=== PATIENT | male | born 1945 | race Caucasian/White ===

== ENCOUNTER 2018-07-09 09:02 | Inpatient (IN) | payer OTHER ==
--- OUTSIDE RECORDS SUMMARY | 2018-07-09 09:04 | XMS REPORT | Clinical Summary ---
:1945 Author Organization [facility] Address [address] [place] [address] Care Team Providers Name Role Phone Vincent Villagomez MD Primary Care Provider Allergies No Known Allergies Medications Medication Sig Dispensed Refills Start Date End Date Status simvastatin (ZOCOR) 10 Take 10 mg by 0 Active MG tablet mouth nightly. terazosin (HYTRIN) 2 MG 0 03/25/2018 Active capsule aspirin (ECOTRIN) 81 MG Take 81 mg by 0 Active enteric coated tablet mouth. MULTIVITAMIN ORAL Take 1 tablet by 0 Active mouth. 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 Encounters Date Type Specialty Care Team Description 06/12/2018 Surgery Gastroenterology Main Maguire MD EGD W/ FNA, ESOPHAGEAL EUS 06/12/2018 Anesthesia Event Gastroenterology Chris Ovalle MD 06/12/2018 [facility] Gastroenterology Main Maguire MD Esophageal Encounter adenocarcinoma (HCC) (Primary Dx) 06/11/2018 Telephone Gastroenterology Sonja Rick MA 06/10/2018 Telephone Gastroenterology Sonja Rikc MA 06/09/2018 Telephone Cardiothoracic Surgery Beverly Barajas MA 06/09/2018 Telephone Gastroenterology Main Maguire MD 06/09/2018 Telephone Gastroenterology Main Maguire MD 06/04/2018 Hospital Radiology Maikel Edward Encounter MD [place] 06/04/2018 Hospital Radiology Maikel Edward Encounter MD [place] 06/04/2018 Office Visit Cardiothoracic Surgery Maikel Edward Esophageal MD [place] adenocarcinoma (HCC) (Primary Dx) 06/03/2018 Orders Only Cardiothoracic Surgery Provider, MD [place] after 07/08/2017 Family History Medical History Relation Name Comments Aplastic anemia Sister Relation Name Status Comments Sister Social History Tobacco Use Types Packs/Day Years Used Date Former Smoker Cigarettes 1 40 Quit: 06/04/2016 Smokeless Tobacco: Never Used Alcohol Use Drinks/Week oz/Week Comments No Sex Assigned at Date Recorded Not on file Job Start Date Occupation Industry Not on file Not on file Not on file Travel History Travel Start Travel End No recent travel history available. Last Filed Vital Signs Vital Sign Reading Time Taken Blood Pressure 154/71 06/12/2018 1:48 PM MANAGING SUPERVISOR Pulse 67 06/12/2018 1:48 PM MANAGING SUPERVISOR Temperature 36.3 C (97.3 F) 06/12/2018 1:20 PM MANAGING SUPERVISOR Respiratory Rate 22 06/12/2018 1:48 PM MANAGING SUPERVISOR Oxygen Saturation 96% 06/12/2018 1:48 PM MANAGING SUPERVISOR Inhaled Oxygen Concentration - - Weight 92.9 kg (204 lb 12.8 oz) 06/04/2018 11:30 AM CDT Height 177.8 cm (5' 10") 06/12/2018 11:37 AM MANAGING SUPERVISOR Body Mass Index 29.39 06/04/2018 11:30 AM CDT Plan of Treatment Health Maintenance Due Date Last Done Comments COLON CANCER SCREENING 1996 SHINGRIX VACCINE (1 of 2) 1996 ZOSTER VACCINE 2006 PNEUMOCOCCAL POLYSACCHARIDE VACCINE AGE 65 AND OVER 2011 PNEUMOCOCCAL-13 2011 INFLUENZA VACCINE 03/04/2018 Procedures Procedure Name Priority Date/Time Associated Comments Diagnosis ESOPHAGOGASTRODUODENOSCOPY (EGD) 06/12/2018 Esophageal 1:00 PM MANAGING SUPERVISOR cancer (HCC) CT CHEST EXTERNAL STUDY Routine 05/29/2018 Results for 3:51 PM CDT this procedure are in the results section. CT CHEST W CONTRAST ABDOMEN W Routine 05/29/2018 CONTRAST PELVIS W CONTRAST CT HEAD EXTERNAL STUDY Routine 05/25/2018 Results for 1:59 PM CDT this procedure are in the results section. after 07/08/[address] Chest External Study (05/29/2018 3:51 PM CDT) Narrative Performed At This exam was not acquired at a [facility] facility and has not been [facility] interpreted by a [facility] Provider.The exam was imported into our imaging system for comparisons purposes. Performing Organization Address City/State/[facility] Phone Number [facility] [address] [place] [address] CT Chest W Contrast Abdomen W Contrast Pelvis W Contrast (05/29/2018) Narrative Performed At CT Head External Study (05/25/2018 1:59 PM CDT) Narrative Performed At This exam was not acquired at a [facility] facility and has not been [facility] interpreted by a [facility] Provider.The exam was imported into our imaging system for comparisons purposes. Performing Organization Address [facility] Phone Number [facility] [address] [place] [address] after 07/08/2017 Insurance Payer Benefit Plan / Group Subscriber ID Type Phone Address A[employer]NA MEDICARE AETNA MEDICARE HMO/PPO [facility] xxxxxxxx HMO Advance Directives Patient has advance care planning documents on file. For more information, please contact:Minor Lopes[address] [place] [address]
[2018-07-09] MEDS ORDERED: Ringers Lactate 1,000 ML IV ONE (09:15)
[2018-07-09] MEDS ORDERED: CEFAZOLIN 1GM (PREMIX IV) 1 GM/50 ML BAG ONE (09:15)
[2018-07-09] MEDS ORDERED: FENTANYL CITR 100 MCG/2 ML ONE (10:55)
[2018-07-09] MEDS ORDERED: PROPOFOL 200 MG/20 ML VIAL IV ONE (10:55)
[2018-07-09] MEDS ORDERED: MIDAZOLAM HCL 2 MG/2 ML INJ ONE (10:56)
[2018-07-09] MEDS ORDERED: LIDOCAINE 2% MPF 5 ML VIAL ONE (10:56)
[2018-07-09] MEDS ORDERED: ROCURONIUM 50 MG/5 ML VIAL IV ONE (10:58)
[2018-07-09] MEDS ORDERED: ONDANSETRON 4 MG/2 ML VIAL ONE (10:58)
--- NOTE | 2018-07-09 12:19 | P.OP ---
Forensic Psychologist: Bandar Head Preoperative diagnosis: Esophageal Cancer Postoperative diagnosis: Esophageal Cancer Primary procedure: Placement of Jejunal Feeding Tube Anesthesia: GETA + Local Estimated blood loss: <5cc Specimen: None Findings: Large omentum, + adhesions Complications: None Implants: 18 Fr Jejunal Feeding Tube Transferred to: Recovery Room Condition: Good
[2018-07-09] MEDS ORDERED: GLYCOPYRROLATE 0.2 MG/ML SYR ONE (12:23)
[2018-07-09] MEDS ORDERED: NEOSTIGMINE 1 MG/ML -5 ML SYRINGE ONE (12:24)
[2018-07-09] MEDS: MEPERIDINE HCL 25 MG/0.5 ML ONE ×2 (12:35→12:40)
[2018-07-09] MEDS: MEPERIDINE HCL 50 MG/ML AMP ONE ×2 (12:49→12:55)
[2018-07-09] MEDS: HYDROMORPHONE HCL 1 MG/ML INJ IV PRN ×2 (13:56→20:20)
[2018-07-09] MEDS: NA CHLORIDE 0.9% 1,000 ML IV SCH (13:57)
[2018-07-09] MEDS: HYDROCODONE/APAP 7.5/325 MG TAB PO PRN ×2 (15:59→21:53)
[2018-07-09 16:36] VITALS: BMI 30.1
[2018-07-09 22:50] LABS: Urine Appearance CLEAR; Urine Bilirubin NEGATIVE (NEG); Urine Blood 2+ (NEG); Urine Color YELLOW; Urine Glucose 1+ (NEG); Urine Protein NEGATIVE (NEG); Urine pH 6.5 (5.0-7.0)
[2018-07-09 23:01] LABS: Urine Microscopic Reflex ORDER UMIC
--- NOTE | 2018-07-09 23:17 | OP ---
Date of Procedure: 07/09/2018 Surgeon: Antony Javier MD, Regulatory Internship: Adrian Cates. Preoperative Diagnosis: Esophageal cancer. Postoperative Diagnosis: Esophageal cancer. Procedure Performed: Placement of a jejunal feeding tube. Anesthesia: General endotracheal plus local. Estimated Blood Loss: Less than 5 cc. Specimen: None. Findings: Large omentum and some intra-abdominal adhesions. Complications: None. Implants: An 18-Sudanese jejunal feeding tube placed 20 cm distal to the ligament of Treitz. Disposition: Transferred to recovery room in good condition. Procedure In Detail: After informed consent was obtained, the patient was brought to the operating r oom, prepped and draped in the usual sterile fashion. After adequate anesthesia was achieved, an upp er midline incision was made through the midline skin down through subcutaneous tissues to dissect do wn to the layer of the fascia, which was opened with electrocautery. Dissection was continued down t o expose the peritoneum. He had significant preperitoneal fat. The peritoneum was grasped and enter ed sharply without evidence of complication. A large omentum was encountered immediately. After the incision was opened in its entirety, the omentum was swept out of the way. The small bowel was run from the ligament of Treitz to distally. A segment of jejunum approximately 20 cm from the ligament of Treitz was isolated and a suture was placed in a purse-string fashion to allow for placement of th e jejunal feeding tube. An area of the left upper quadrant was appropriately anesthetized, sharply i ncised, and an incision was made in the skin and a Crile was passed through the abdominal wall and th e jejunal feeding tube was passed after being appropriately lubricated. The balloon was tested and i t was passed through the abdominal wall and secured to the skin at this time. The balloon was once a gain tested and found to be intact. A small hole was then made in the jejunum and the 18-Sudanese jeju nal feeding tube was fed from proximal to distal and the balloon was inflated at this time. The purs estring was then secured to the jejunal feeding tube at this time and the additional silk retention s utures were placed on the abdominal wall circumferentially and the small bowel was secured to the ant erior abdominal wall using the 2-0 silk sutures with good approximation of the small bowel to the ant erior abdominal wall. The bowel was palpated and found to be widely patent. A 2 cc of saline was pl aced into the balloon and it was found to be in the distal position at this time. There was no leaka ge from enteric contents throughout the procedure and the abdomen was inspected once again. The omen mary was then returned to the normal anatomic position as was the small bowel. No obvious metastatic disease was appreciated, but this was not full exploration and as such, metastatic disease was not ob vious, but it was not sought in any significant way at this time. The abdomen was then closed en blo c using a #1 looped PDS suture with good approximation of the tissue. The skin was then copiously ir rigated and closed with skin dorina and sterile dressing was placed over top. The patient tolerated the procedure well without evidence of complication, transferred to the PACU in good condition. All counts were correct at the end of the case. JHONATHAN/BRISA Voice ID: [id number] Report ID: [id number]
[2018-07-10 01:08] LABS: Urine Bacteria <20 /HPF (NONE SEEN)
[2018-07-10 01:09] LABS: Urine Culture Reflex Order NOT NEEDED
[2018-07-10] MEDS: HYDROMORPHONE HCL 1 MG/ML INJ IV PRN ×2 (02:10→21:45)
[2018-07-10] MEDS: NA CHLORIDE 0.9% 1,000 ML IV SCH ×2 (03:59→09:00)
[2018-07-10] MEDS: HYDROCODONE/APAP 7.5/325 MG TAB PO PRN ×2 (03:59→10:06)
[2018-07-10] MEDS: ONDANSETRON 4 MG/2 ML VIAL IV PRN ×3 (05:51→21:45)
[2018-07-10] MEDS ORDERED: PANTOPRAZOLE 40MG TABLET PO SCH (06:30)
[2018-07-10] MEDS ORDERED: PROMETHAZINE 25 MG/ML VIAL IV ONE ×2 (10:10→17:41)
[2018-07-10] MEDS: PANTOPRAZOLE 40MG TABLET PO SCH ×2 (11:29→11:36)
[2018-07-10] MEDS ORDERED: D5 0.45 NS 1,000 ML IV SCH (17:00)
[2018-07-10] MEDS: D5 0.45 NS 1,000 ML IV SCH (23:00)
[2018-07-11] MEDS ORDERED: PROMETHAZINE 25 MG/ML VIAL IV PRN (02:03)
[2018-07-11] MEDS: HYDROMORPHONE HCL 1 MG/ML INJ IV PRN ×3 (02:10→19:42)
[2018-07-11] MEDS: D5 0.45 NS 1,000 ML IV SCH ×4 (02:16→19:43)
[2018-07-11] MEDS: NA CHLORIDE 0.9% 1,000 ML IV SCH (05:00)
[2018-07-11 05:40] LABS: Absolute Lymphocytes (CBC) 0.8 K/uL (0.7-4.9); Absolute Monocytes 0.3 K/uL (0.1-1.3); Absolute Neutrophil 4.8 K/uL (1.8-8.0); Basophils % 0.3 % (0-1.3); Eosinophils % 0.3 % (0-4.4); Hematocrit 46.7 % (39.6-49.0); Lymphocytes % 13.9 % (15.3-44.8); MCH 32.1 pg (27.0-35.0); MCV 93.8 fL (80-100); MPV 10.1 fL (7.6-11.3); Monocytes % 5.4 % (3.3-12.3); RBC Red Blood Cell Count 4.98 M/uL (4.33-5.43)
[2018-07-11 05:43] LABS: Potassium 3.5 mmol/L (3.5-5.1)
[2018-07-11] MEDS: PANTOPRAZOLE 40MG TABLET PO SCH (06:06)
[2018-07-11] MEDS: ONDANSETRON 4 MG/2 ML VIAL IV PRN ×2 (07:52→15:06)
[2018-07-11 09:48] LABS: Blood Morphology Comment NOT SEEN (NOT SEEN); Platelet Estimate ADEQ; Urine White Blood Cell Casts OK
[2018-07-11] MEDS: PROMETHAZINE 25 MG/ML VIAL IV PRN ×2 (13:31→19:42)
[2018-07-11] MEDS ORDERED: SODIUM CHLORIDE 0.9% 10ML INJ IV PRN (14:13)
[2018-07-11] MEDS: PANTOPRAZOLE 40 MG INJ IVP SCH (15:05)
[2018-07-12] MEDS: NA CHLORIDE 0.9% 1,000 ML IV SCH (01:00)
[2018-07-12] MEDS: PROMETHAZINE 25 MG/ML VIAL IV PRN (03:00)
[2018-07-12] MEDS: HYDROMORPHONE HCL 1 MG/ML INJ IV PRN ×4 (03:04→20:11)
[2018-07-12 05:38] LABS: Absolute Monocytes 0.2 K/uL (0.1-1.3); Absolute Neutrophil 1.2 K/uL (1.8-8.0); Basophils % 0.2 % (0-1.3); Eosinophils % 0.3 % (0-4.4); Hematocrit 38.7 % (39.6-49.0); Lymphocytes % 3.4 % (15.3-44.8); MCH 32.4 pg (27.0-35.0); MCV 92.1 fL (80-100); MPV 9.5 fL (7.6-11.3); Monocytes % 13.1 % (3.3-12.3)
[2018-07-12 05:59] LABS: Potassium 3.5 mmol/L (3.5-5.1)
[2018-07-12] MEDS: D5 0.45 NS 1,000 ML IV SCH (07:00)
[2018-07-12] MEDS: ONDANSETRON 4 MG/2 ML VIAL IV PRN ×2 (07:27→16:10)
[2018-07-12] MEDS ORDERED: KCL 20 MEQ/100 mL IVPB 20 MEQ/100 ML BAG IV SCH (08:00)
[2018-07-12] MEDS: D5 0.9 NS 1,000 ML IV SCH ×3 (09:09→20:12)
[2018-07-12] MEDS: METRONIDAZOLE 500mg IVPB 500 MG/100 ML BAG IV SCH ×2 (09:11→16:50)
[2018-07-12] MEDS: Levofloxacin500mg IV 500 MG/100 ML BAG IV SCH (09:11)
[2018-07-12] MEDS: PANTOPRAZOLE 40 MG INJ IVP SCH ×2 (09:12→20:11)
[2018-07-12 09:40] LABS: Blood Morphology Comment NOT SEEN (NOT SEEN); Platelet Estimate DECR; Platelets, Giant FEW; Urine White Blood Cell Casts OK
[2018-07-12] MEDS ORDERED: METOPROLOL TARTRATE 5 MG/5 ML INJ IV STA ×2 (16:29→17:45)
[2018-07-12] MEDS ORDERED: NA CHLORIDE 0.9% 500 ML IV ONE (16:38)
[2018-07-12] MEDS ORDERED: METOPROLOL TARTRATE 5 MG/5 ML INJ IV PRN (16:42)
--- NOTE | 2018-07-12 16:47 | P.CNS ---
Date of Consult: 07/12/18 Reason for Consult: Tachycardia Requesting Physician: Antony Javier Allergies No Known Allergies Allergy (Verified 07/08/18 16:30) Home Medications: Carboplatin 150 mg IV EVERY 7TH DAY 07/08/18 Dexamethasone [Decadron] 8 mg PO EVERY 7TH DAY 07/08/18 Multivitamin [Multivitamins] 1 each PO DAILY 07/08/18 PACLitaxel [Paclitaxel] 6 mg IV EVERY 7TH DAY 07/08/18 Simvastatin 10 mg PO DAILY 07/08/18 Terazosin HCl 4 mg PO DAILY 07/08/18 - Past Medical/Surgical History Diabetic: No -: Esophageal cancer -: cataract surgery - Social History Alcohol use: No CD- Drugs: No Caffeine use: Yes Place of Residence: Home Review of Systems 10-point ROS is otherwise unremarkable Physical Examination Temp Pulse Resp BP Pulse Ox 99.3 F 89 18 150/67 H 93 07/12/18 16:00 07/12/18 16:00 07/12/18 16:00 07/12/18 16:00 07/12/18 16:00 General: Alert, Moderate distress HEENT: Atraumatic Neck: Supple Respiratory: Normal air movement, Expiratory wheezes, Inspiratory wheezes Cardiovascular: Regular rate/rhythm, Normal S1 S2 Gastrointestinal: Normal bowel sounds, No tenderness Musculoskeletal: No tenderness Integumentary: No rashes Neurological: Normal gait, Normal speech, Normal tone, Normal affect Lymphatics: No axilla or inguinal lymphadenopathy Laboratory Data (last 24 hrs) 07/12/18 04:55: Sodium 135 L, Potassium 3.5, BUN 28 H, Creatinine 0.90, Glucose 232 H 07/12/18 04:55: WBC 1.4 L* D, Hgb 13.6, Hct 38.7 L D, Plt Count 138 L - Problems (1) Sinus tachycardia Current Visit: Yes Status: Acute (2) Esophageal cancer Current Visit: Yes Status: Acute Qualifiers: Malignant neoplasm of esophagus location: unspecified location Qualified Code(s): C15.9 - Malignant neoplasm of esophagus, unspecified (3) Encounter for feeding tube placement Current Visit: Yes Status: Acute Conclusions/Impression: 73-year-old male with significant past medical history of CAD stoppage of cancer was admitted to the hospital status post feeding tube placement now with tachycardia. Patient has been having nausea and vomiting since the feeding tube placement. Is currently planned for except tomorrow with the surgery. At this time Lopressor x1 has been ordered. Will get EKG, troponin, echocardiogram to further evaluate for sinus tachycardia. Sinus tachycardia could be secondary to dehydration. Will also go ahead and give IV fluids at this time. Will re-evaluate patient in the a.m. will follow along with general surgery.
[2018-07-12] MEDS ORDERED: DIGOXIN 0.25 MG/ML AMP IV ONE (21:01)
[2018-07-12 21:03] LABS: Absolute Lymphocytes (CBC) 0.1 K/uL (0.7-4.9); Absolute Monocytes 0.4 K/uL (0.1-1.3); Absolute Neutrophil 1.8 K/uL (1.8-8.0); Basophils % 0.1 % (0-1.3); Eosinophils % 1.6 % (0-4.4); Lymphocytes % 5.7 % (15.3-44.8); MCH 32.5 pg (27.0-35.0); MCV 93.9 fL (80-100); MPV 8.8 fL (7.6-11.3); Monocytes % 15.1 % (3.3-12.3); RBC Red Blood Cell Count 3.73 M/uL (4.33-5.43)
[2018-07-12 21:27] LABS: ALT/SGPT 16 U/L (12-78); AST/SGOT 8 U/L (15-37); Albumin 2.6 g/dL (3.4-5.0); Alkaline Phosphatase 37 U/L (45-117); BUN Blood Urea Nitrogen 23 mg/dL (7-18); Bicarbonate 30 mmol/L (21-32); Bilirubin Total 0.7 mg/dL (0.2-1.0); CKMB Creatine Kinase MB < 1.0 ng/mL (0.3-3.6); Creatine Phosphokinase 53 U/L (39-308); Glucose Level 152 mg/dL (74-106); Magnesium 2.1 mg/dL (1.8-2.4); Phosphorus 1.5 mg/dL (2.5-4.9); Potassium 3.7 mmol/L (3.5-5.1); Protein, Total 5.5 g/dL (6.4-8.2); Sodium Level 140 mmol/L (136-145); Troponin I 0.04 ng/mL (0.0-0.045)
[2018-07-13] MEDS: HYDROMORPHONE HCL 1 MG/ML INJ IV PRN ×4 (00:16→20:16)
[2018-07-13] MEDS: METRONIDAZOLE 500mg IVPB 500 MG/100 ML BAG IV SCH ×3 (00:17→17:00)
[2018-07-13] MEDS: D5 0.9 NS 1,000 ML IV SCH ×3 (00:17→20:16)
[2018-07-13] MEDS: DIGOXIN 0.25 MG/ML AMP IV SCH ×2 (02:14→08:00)
[2018-07-13 04:18] LABS: Absolute Lymphocytes (CBC) 0.2 K/uL (0.7-4.9); Absolute Monocytes 0.4 K/uL (0.1-1.3); Absolute Neutrophil 1.9 K/uL (1.8-8.0); Basophils % 0.2 % (0-1.3); Eosinophils % 2.4 % (0-4.4); Hematocrit 33.7 % (39.6-49.0); Lymphocytes % 9.2 % (15.3-44.8); MCH 32.8 pg (27.0-35.0); MPV 9.1 fL (7.6-11.3); Monocytes % 15.8 % (3.3-12.3); RBC Red Blood Cell Count 3.59 M/uL (4.33-5.43)
[2018-07-13 04:34] LABS: Phosphorus 1.5 mg/dL (2.5-4.9); Potassium 3.7 mmol/L (3.5-5.1)
[2018-07-13] MEDS ORDERED: POTASSIUM PHOS IN 0.9 % NACL 15 MMOL/250 ML BAG IV ONE (05:03)
[2018-07-13] MEDS: METOPROLOL TARTRATE 5 MG/5 ML INJ IV SCH ×5 (06:58→21:28)
--- NOTE | 2018-07-13 07:11 | EKG ---
Test Date: 2018-07-12 Test Time: 20:57:06 Invasive Cardiovascular Technologist: RT White MEASUREMENT RESULTS: Intervals: Rate: 133 HI: QRSD: 86 QT: 346 QTc: 514 [place]: P: HI: QRS: 67 T: -46 INTERPRETIVE STATEMENTS: Atrial fibrillation with rapid ventricular response Nonspecific ST and T wave abnormality, probably digitalis effect Abnormal ECG Compared to ECG 07/12/2018 16:26:51 Sinus tachycardia no longer present ST (T wave) deviation still present Electronically Signed On 07-13-18 07:10:53 RIVET MACHINE OPERATOR by Ruiz Garcia
--- NOTE | 2018-07-13 07:12 | EKG ---
Test Date: 2018-07-12 Test Time: 16:26:51 Back Facer: ROZ MEASUREMENT RESULTS: Intervals: Rate: 156 IL: 206 QRSD: 86 QT: 306 QTc: 493 [place]: P: 23 IL: 206 QRS: 30 T: -69 INTERPRETIVE STATEMENTS: Sinus tachycardia Marked ST abnormality, possible inferior subendocardial injury Abnormal ECG No previous ECG available for comparison Electronically Signed On 07-13-18 07:10:57 LAND RESOURCE SPECIALIST by Ruiz Garcia
[2018-07-13] MEDS: Levofloxacin500mg IV 500 MG/100 ML BAG IV SCH (08:00)
--- NOTE | 2018-07-13 08:44 | P.CNS ---
Date of Consult: 07/12/18 Reason for Consult: Tachyarrhythmia Requesting Physician: Antony Javier Primary Care Provider: Vincent Villagomez Chief Complaint: Abdominal pain History of Present Illness: Patient is a 73-year-old gentleman who came into the hospital for a J-tube placement. He had been doing well and he suddenly went into atrial fibrillation with rapid ventricular response. He was not aware that this was going on. He has been on atenolol in the past but stopped it because of blood pressure has been running low. She follows up with his trimmer press clippings Dr. Brunson. Patient has been having abdominal discomfort, and he was recently diagnosed with esophageal cancer. He is not able to eat well and his nutritional status has been poor so he had a J-tube placed. Patient developed a tachyarrhythmia and an EKG was performed. The reading indicated a sinus tachycardia however it appeared irregular. We have went to his room and connected him to the telemetry and slowed him down some more. He had an atrial fibrillation with rapid ventricular response. We treated him with IV Lopressor to get better rate control. Will get an echocardiogram and cardiology consultation in the morning Allergies No Known Allergies Allergy (Verified 07/08/18 16:30) Home Medications: Carboplatin 150 mg IV EVERY 7TH DAY 07/08/18 Dexamethasone [Decadron] 8 mg PO EVERY 7TH DAY 07/08/18 Multivitamin [Multivitamins] 1 each PO DAILY 07/08/18 PACLitaxel [Paclitaxel] 6 mg IV EVERY 7TH DAY 07/08/18 Simvastatin 10 mg PO DAILY 07/08/18 Terazosin HCl 4 mg PO DAILY 07/08/18 - Past Medical/Surgical History Diabetic: No -: Esophageal cancer -: cataract surgery - Social History Alcohol use: No CD- Drugs: No Caffeine use: Yes Place of Residence: Home Review of Systems 10-point ROS is otherwise unremarkable Physical Examination Temp Pulse Resp BP Pulse Ox 97.7 F 88 18 107/54 L 94 07/13/18 08:00 07/13/18 08:00 07/13/18 08:00 07/13/18 08:00 07/13/18 08:00 General: Alert, In no apparent distress, Oriented x3 HEENT: Atraumatic, PERRLA, Mucous membr. moist/pink, EOMI, Sclerae nonicteric Neck: Supple, 2+ carotid pulse no bruit, No LAD, Without JVD or thyroid abnormality Respiratory: Clear to auscultation bilaterally, Normal air movement Cardiovascular: Irregular heart rate/rhythm, Systolic murmur Gastrointestinal: Normal bowel sounds, Soft and benign, Non-distended, Tenderness Musculoskeletal: No clubbing, No swelling, No tenderness Integumentary: No rashes Neurological: Normal gait, Normal speech, Normal strength at 5/5 x4 extr, Normal tone, Sensation intact, Cranial nerves 3-12 intact, Normal affect Lymphatics: No axilla or inguinal lymphadenopathy Laboratory Data (last 24 hrs) 07/13/18 03:47: Sodium 140, Potassium 3.7, BUN 19 H, Creatinine 1.00, Glucose 147 H, Phosphorus 1.5 L 07/13/18 03:47: WBC 2.6 L, Hgb 11.8 L, Hct 33.7 L, Plt Count 91 L 07/12/18 20:43: Sodium 140, Potassium 3.7, BUN 23 H, Creatinine 0.90, Glucose 152 H, Phosphorus 1.5 L, Magnesium 2.1, Total Bilirubin 0.7, AST 8 L, ALT 16, Alkaline Phosphatase 37 L, Troponin I 0.04 07/12/18 20:43: WBC 2.3 L D, Hgb 12.1 L, Hct 35.0 L, Plt Count 89 L D 07/12/18 17:46: Troponin I 0.02 07/12/18 04:55: WBC 1.4 L* D, Hgb 13.6, Hct 38.7 L D, Plt Count 138 L - Problems (1) Atrial fibrillation with rapid ventricular response Current Visit: Yes Status: Acute (2) Encounter for feeding tube placement Current Visit: Yes Status: Acute (3) Esophageal cancer Current Visit: Yes Status: Acute Qualifiers: Malignant neoplasm of esophagus location: unspecified location Qualified Code(s): C15.9 - Malignant neoplasm of esophagus, unspecified Conclusions/ Impression: Plan: 1. IV beta-milton therapy and cardiology consultation 2. Echocardiogram 3. Would advise holding off on surgery until cardiac workup completed 4. We gave records from his trimmer press clippings Dr. Brunson 5. Check thyroid studies and electrolytes 6. Monitor on telemetry closely 7. GI and DVT prophylaxis Critical Care: No Time Spent Managing Pts care (In Minutes): 50
--- NOTE | 2018-07-13 10:18 | P.PN ---
Subjective Date of Service: 07/10/18 Primary Care Provider: Vincent Villagomez Chief Complaint: Abdominal pain Patient had some nausea with vomiting, but feels better this AM and is asking for meals, + gas Physical Examination - Vital Signs Temperature: 97.7 F Blood Pressure: 107/54 Pulse: 88 Respirations: 18 Pulse Ox (%): 94 - Physical Exam General: Alert, In no apparent distress, Cooperative Gastrointestinal: Other (soft, minimal tenderness to palpation, j tube in place) - Studies Laboratory Data (last 24 hrs) 07/13/18 03:47: Sodium 140, Potassium 3.7, BUN 19 H, Creatinine 1.00, Glucose 147 H, Phosphorus 1.5 L 07/13/18 03:47: WBC 2.6 L, Hgb 11.8 L, Hct 33.7 L, Plt Count 91 L 07/12/18 20:43: Sodium 140, Potassium 3.7, BUN 23 H, Creatinine 0.90, Glucose 152 H, Phosphorus 1.5 L, Magnesium 2.1, Total Bilirubin 0.7, AST 8 L, ALT 16, Alkaline Phosphatase 37 L, Troponin I 0.04 07/12/18 20:43: WBC 2.3 L D, Hgb 12.1 L, Hct 35.0 L, Plt Count 89 L D 07/12/18 17:46: Troponin I 0.02 Assessment And Plan - Current Problems (Diagnosis) (1) Esophageal cancer Onset Date: 07/13/18 Current Visit: Yes Status: Acute Plan: - patient remains nauseated - perhaps ileus - will restart clears - j tube flushes and withdraws green bilious liquid well, functions well Qualifiers: Malignant neoplasm of esophagus location: unspecified location Qualified Code(s): C15.9 - Malignant neoplasm of esophagus, unspecified
--- NOTE | 2018-07-13 10:23 | P.PN ---
Subjective Date of Service: 07/13/18 Primary Care Provider: Vincent Villagomez Chief Complaint: Abdominal pain Patient had some nausea with vomiting, but feels better this AM and is hungry, however he developed A-fib with RVR overnight, and has not been able to tolerated adequate PO without emesis. minimal pain, no nausea currently, no chest pain. Physical Examination - Vital Signs Temperature: 97.7 F Blood Pressure: 107/54 Pulse: 88 Respirations: 18 Pulse Ox (%): 94 - Physical Exam General: Alert, In no apparent distress, Cooperative HEENT: Mucous membr. moist/pink Respiratory: Clear to auscultation bilaterally Cardiovascular: Other (normal sinus during my exam) Gastrointestinal: Other (soft, NT, ND, j tube has bilious material, minimal soilage) - Studies Laboratory Data (last 24 hrs) 07/13/18 03:47: Sodium 140, Potassium 3.7, BUN 19 H, Creatinine 1.00, Glucose 147 H, Phosphorus 1.5 L 07/13/18 03:47: WBC 2.6 L, Hgb 11.8 L, Hct 33.7 L, Plt Count 91 L 07/12/18 20:43: Sodium 140, Potassium 3.7, BUN 23 H, Creatinine 0.90, Glucose 152 H, Phosphorus 1.5 L, Magnesium 2.1, Total Bilirubin 0.7, AST 8 L, ALT 16, Alkaline Phosphatase 37 L, Troponin I 0.04 07/12/18 20:43: WBC 2.3 L D, Hgb 12.1 L, Hct 35.0 L, Plt Count 89 L D 07/12/18 17:46: Troponin I 0.02 Assessment And Plan - Current Problems (Diagnosis) (1) Esophageal cancer Onset Date: 07/13/18 Current Visit: Yes Status: Acute Plan: - patient remains nauseated - perhaps ileus vs SBO - j tube flushes and withdraws green bilious liquid well, functions well - will return to OR to see if there is an obstructive process causing inability to tolerate PO - I have explained the risks, benefits, and alternatives to return to OR for exploratory laparotomy including but not limited to bleeding, infection, damage to intestines, heart attack, stroke, need for more surgery - I have discussed case with Dr. Velez whom recommended beta blockade and considers patient low risk from a cardiac standpoint for exploratory laparotomy - continue medical management Qualifiers: Malignant neoplasm of esophagus location: unspecified location Qualified Code(s): C15.9 - Malignant neoplasm of esophagus, unspecified
[2018-07-13] MEDS ORDERED: Ringers Lactate 1,000 ML IV ONE (10:44)
[2018-07-13] MEDS ORDERED: PROPOFOL 200 MG/20 ML VIAL IV ONE (10:48)
[2018-07-13] MEDS ORDERED: FENTANYL CITR 250 MCG/5 ML ONE ×2 (10:48→11:43)
[2018-07-13] MEDS ORDERED: LIDOCAINE 2% MPF 5 ML VIAL ONE (10:48)
[2018-07-13] MEDS ORDERED: MIDAZOLAM HCL 2 MG/2 ML INJ ONE (10:48)
[2018-07-13] MEDS ORDERED: ROCURONIUM 50 MG/5 ML VIAL IV ONE (10:49)
[2018-07-13] MEDS ORDERED: Phenylephrine HCl 10 MG/ML 1 ML VIAL ONE (11:32)
--- NOTE | 2018-07-13 11:34 | EKG ---
Test Date: 2018-07-13 Test Time: 10:12:31 Auto Service Instructor: FAHAD MEASUREMENT RESULTS: Intervals: Rate: 78 MO: 360 QRSD: 84 QT: 394 QTc: 449 [place]: P: 43 MO: 360 QRS: 29 T: 29 INTERPRETIVE STATEMENTS: Sinus rhythm with 1st degree AV block Nonspecific T wave abnormality Abnormal ECG Compared to ECG 07/12/2018 20:57:06 First degree AV block now present T-wave abnormality now present Atrial fibrillation no longer present ST (T wave) deviation no longer present Electronically Signed On 07-13-18 11:34:07 FLATTENING PRESS OPERATOR by Galdino Velez
[2018-07-13] MEDS ORDERED: LABETALOL 20 MG/4ML SYRINGE IV ONE (11:46)
[2018-07-13] MEDS ORDERED: ALBUMIN HUM 5% 0 ML IV ONE (11:58)
[2018-07-13] MEDS ORDERED: dilTIAZem HCl 25 MG/5 ML VIAL IV ONE (12:00)
[2018-07-13] MEDS ORDERED: GLYCOPYRROLATE 0.2 MG/ML SYR ONE (12:06)
--- NOTE | 2018-07-13 12:06 | P.OP ---
Preoperative diagnosis: Persistent Nausea and Emesis - possible obstruction Postoperative diagnosis: No bowel obstruction, no issues noted Primary procedure: Exploratory Laparotomy Anesthesia: GETA Estimated blood loss: <10cc Specimen: None Findings: no evidence of obstruction, no leak Complications: None Transferred to: Recovery Room Condition: Good
[2018-07-13] MEDS ORDERED: NEOSTIGMINE 1 MG/ML -5 ML SYRINGE ONE (12:15)
--- NOTE | 2018-07-13 12:32 | CON ---
This is a 73-year-old man. Reason For Cardiology Consult: Atrial fibrillation. History Of Present Illness: Mr. Lucia was discovered to have esophageal cancer. Apparently loc al lymph nodes, no distant METS. I do not know what the staging is. He is getting chemo and radiati on and plan is if he is stable at some point to remove the esophagus or the tumor or do some kind of resection. He has never had atrial fibrillation before. He has hypertension and dyslipidemia all un srinivasa good control. He was in the hospital because he was unable to eat, had a feeding tube placed and developed nausea and vomiting, vomiting of bilious fluids. He is unable to swallow, everything he s wallows comes up, but he was vomiting bilious material. Shortly after getting his surgery, he went i nto atrial fibrillation. Presently, his heart rate is in the 80s and 90s. He has received digoxin a nd metoprolol. He has expressed an interest in not taking a blood thinner. His has chronic atr ial fibrillation, but is not taking a blood thinner. He is doing well. I think he plans to follow t hat plan. He is planned for another surgery today. Presently, his heart rate is 102, blood pressure 119/62. Physical Examination: General: He is alert, oriented, pleasant, not in distress. Lungs: Clear. Heart: Within normal limits except irregular. Abdomen: Soft. Extremities: Normal. No cyanosis or clubbing, although there is a trace of edema. He uses no tobacco. Does not have diabetes. Never had chest pain. Never had a cardiac cath or any intervention or any vascular disease. No history of blood clots. Impression: Mr. Lucia should probably pursue a course of rate control. We cannot really give a ny antiarrhythmic drugs. We will try and correct his electrolytes, keep his heart rate under control with intravenous Lopressor. Intravenous digoxin can also be used. He will probably need a slightly higher dose than he is on, trying to give an overall antiarrhythmic drug at this point is impossible . RAIN/BRISA Voice ID: [id number] Report ID: [id number]
[2018-07-13] MEDS ORDERED: ONDANSETRON 4 MG/2 ML VIAL ONE (12:45)
[2018-07-13] MEDS: MORPHINE 4 MG/ML SYR ONE ×4 (13:00→13:15)
[2018-07-13] MEDS: MEPERIDINE HCL 50 MG/ML AMP ONE ×2 (13:18→13:23)
[2018-07-13] MEDS ORDERED: MEPERIDINE HCL 25 MG/0.5 ML ONE (13:42)
--- NOTE | 2018-07-13 13:59 | P.PN ---
Subjective Date of Service: 07/13/18 Primary Care Provider: Vincent Villagomez Chief Complaint: Abdominal pain Patient seen and examined at bedside with RN. Chart reviewed. Case discussed with general surgery. Patient is currently awaiting revision of his feeding tube Review of Systems 10-point ROS is otherwise unremarkable Physical Examination - Vital Signs Temperature: 98.7 F Blood Pressure: 131/54 Pulse: 90 Respirations: 20 Pulse Ox (%): 94 - Physical Exam General: Alert, Mild distress HEENT: PERRLA Respiratory: Normal air movement, Crackles/rales Cardiovascular: Regular rate/rhythm, Normal S1 S2 Gastrointestinal: Normal bowel sounds, Tenderness Musculoskeletal: No tenderness Integumentary: No rashes Neurological: Normal speech, Normal tone, Normal affect Lymphatics: No axilla or inguinal lymphadenopathy - Studies Laboratory Data (last 24 hrs) 07/13/18 03:47: Sodium 140, Potassium 3.7, BUN 19 H, Creatinine 1.00, Glucose 147 H, Phosphorus 1.5 L 07/13/18 03:47: WBC 2.6 L, Hgb 11.8 L, Hct 33.7 L, Plt Count 91 L 07/12/18 20:43: Sodium 140, Potassium 3.7, BUN 23 H, Creatinine 0.90, Glucose 152 H, Phosphorus 1.5 L, Magnesium 2.1, Total Bilirubin 0.7, AST 8 L, ALT 16, Alkaline Phosphatase 37 L, Troponin I 0.04 07/12/18 20:43: WBC 2.3 L D, Hgb 12.1 L, Hct 35.0 L, Plt Count 89 L D 07/12/18 17:46: Troponin I 0.02 07/12/18 04:55: WBC 1.4 L* D, Hgb 13.6, Hct 38.7 L D, Plt Count 138 L Medications List Reviewed: Yes Assessment And Plan - Current Problems (Diagnosis) (1) Atrial fibrillation with rapid ventricular response Onset Date: 07/13/18 Current Visit: Yes Status: Acute Plan: Afib with RVR after Surgery -Cardiology consulted. Recommendation appreciated at this time -echocardiogram pending -IV Lopressor at this time. Hold anti coagulation due to surgical procedure (2) Esophageal cancer Onset Date: 07/13/18 Current Visit: Yes Status: Chronic Qualifiers: Malignant neoplasm of esophagus location: unspecified location Qualified Code(s): C15.9 - Malignant neoplasm of esophagus, unspecified (3) Encounter for feeding tube placement Onset Date: 07/13/18 Current Visit: Yes Status: Chronic Discharge Plan: Other Plan to discharge in: 72 Hours - Code Status/Comfort Care Code Status Assessed: Yes Critical Care: No
[2018-07-13] MEDS: PANTOPRAZOLE 40 MG INJ IVP SCH ×2 (14:19→20:16)
--- NOTE | 2018-07-13 14:53 | ECHO ---
HEIGHT: 5 ft 10 in WEIGHT: 210 lb 0 oz DATE OF STUDY: 07/13/[address]: Misti Mcdaniel MD 2-DIMENSIONAL: YES M.MODE: YES DOPPLER: YES COLOR FLOW: YES TDS: NO PORTABLE: NO DEFINITY: NO BUBBLE STUDY: NO DIAGNOSIS: TACHYCARDIA CARDIAC HISTORY: CATHERIZATION: SURGERY: PROSTHETIC VALVE: PACEMAKER: MEASUREMENTS (cm) DIASTOLIC (NORMALS) SYSTOLIC (NORMALS) IVSd 1.3 (0.6-1.2) LA Diam 3.8 (1.9-4.0) LVEF 64% LVIDd 4.3 (3.5-5.7) LVIDs 2.8 (2.0-3.5) %FS 35% LVPWd 1.2 (0.6-1.2) Ao Diam 3.0 (2.0-3.7) 2 DIMENSIONAL ASSESSMENT: RIGHT ATRIUM: NORMAL LEFT ATRIUM: NORMAL RIGHT VENTRICLE: NORMAL LEFT VENTRICLE: NORMAL TRICUSPID VALVE: NORMAL MITRAL VALVE: NORMAL PULMONIC VALVE: NORMAL AORTIC VALVE: MILD SCLEROSIS PERICARDIAL EFFUSION: NONE AORTIC ROOT: NORMAL LEFT VENTRICULAR WALL MOTION: NORMAL DOPPLER/COLOR FLOW: PHYSIOLOGIC TRICUSPID REGURGITATION. NORMAL RIGHT VENTRICULAR SYSTOLIC PRESSURE. COMMENTS: NORMAL LEFT VENTRICULAR EJECTION FRACTION. AORTIC SCLEROSIS WITH NO AORTIC STENOSIS OR AORTIC REGURGITATION. PHYSIOLOGIC TRICUSPID REGURGITATION. NORMAL RIGHT VENTRICULAR SYSTOLIC PRESSURE. ATRIAL FLUTTER VARIENT BELOW NORMAL HEART RATE 60-70 BEATS PER MINUTE. TECHNOLOGIST: Allen RAMIREZ
--- NOTE | 2018-07-13 15:24 | EKG ---
Test Date: 2018-07-13 Test Time: 12:41:48 [employer]: BARBER MEASUREMENT RESULTS: Intervals: Rate: 65 FL: QRSD: 94 QT: 448 QTc: 465 [place]: P: 45 FL: QRS: 29 T: -17 INTERPRETIVE STATEMENTS: Atrial flutter with variable AV block Nonspecific T wave abnormality Prolonged QT Abnormal ECG Compared to ECG 07/13/2018 10:12:31 Prolonged QT interval now present Sinus rhythm no longer present First degree AV block no longer present T-wave abnormality still present Electronically Signed On 07-13-18 15:24:24 [employer] by Galdino Velez
--- NOTE | 2018-07-13 22:17 | OP ---
Date of Procedure: 07/13/2018 Surgeon: Mariluz Javier MD, Preoperative Diagnosis: Persistent nausea and emesis, possible obstruction. Postoperative Diagnosis: No bowel obstructions and no pathologic findings noted. Procedure: Exploratory laparotomy. Anesthesia: General endotracheal. Estimated Blood Loss: Less than 10 cc. Specimen: None. Procedure In Detail: The patient was taken to the operating room and explored. However, no evidence of an obstructive process was noted. There was no proximal bowel dilatation. There was no distal o bstruction. The bowel was not dilated at all throughout its entirety. I ran back to the small bowel from the J tube placement site to approximately 20-25 cm to the ligament of Treitz and there were no flips, no turns, no twist, no torsion, or no dilatation. The stomach was not distended. I was able to milk enteric contents from the ligament of Treitz distally past the J tube insertion site. There was no leakage. There was no evidence of constriction. The fluid material moved quite easily past the J tube insertion site and distally. The balloon was found to be intact against the abdominal wal l. I simply placed a reinforcing stitch of 2-0 Vicryl in this area to help align the bowel in somewh at a more proximal fashion to have a more linear lie leading up to the abdominal wall. I then irriga mariluz out the remainder of the abdominal cavity and ran the bowel for approximately 20-30 cm distal to the surgical site. I then opened and looked into the remainder of the small bowel without running in its entirety and there was no dilatation of the distal small bowel as well and all appeared to be fa irly uniform in size with no transitions obviously noted. The skin was then irrigated and the surgic al site was irrigated. The omentum was placed back in the normal anatomic position and the abdominal wall was reclosed with the #1 looped PDS in a running fashion with good approximation of tissues. T he skin was then copiously irrigated one last time and closed with interrupted dorina with good appr oximation. A sterile dressing was then replaced over the top and the patient tolerated the procedure well without evidence of complication. The J tube flushed quite easily and was tested at this time, and the patient was returned to the PACU in stable condition. The only findings during the case wer e an episode of atrial fibrillation with RVR, which had occurred previous, but no hemodynamic instabi lity was associated. The patient's blood pressure remained in the 100 systolic range throughout and his tachycardia was in the 130 range, but he remained hemodynamically stable. All counts were correc t at the end of the case. JHONATHAN/BRISA Voice ID: [id number] Report ID: [id number]
[2018-07-14] MEDS: HYDROMORPHONE HCL 1 MG/ML INJ IV PRN ×6 (00:12→22:18)
[2018-07-14] MEDS: METRONIDAZOLE 500mg IVPB 500 MG/100 ML BAG IV SCH ×3 (00:12→17:40)
[2018-07-14] MEDS: METOPROLOL TARTRATE 5 MG/5 ML INJ IV SCH ×4 (03:55→21:42)
[2018-07-14] MEDS: D5 0.9 NS 1,000 ML IV SCH ×4 (03:55→22:20)
[2018-07-14 04:24] LABS: Potassium 3.6 mmol/L (3.5-5.1)
[2018-07-14] MEDS ORDERED: POTASSIUM PHOS IN 0.9 % NACL 15 MMOL/250 ML BAG IV ONE ×3 (05:31→11:45)
[2018-07-14] MEDS ORDERED: JEVITY 1.5 CAL LIQUID 1,000 ML BOT RTH SCH (08:00)
[2018-07-14] MEDS: PROMOD 30 ML DOSE PO SCH (09:00)
[2018-07-14] MEDS: PANTOPRAZOLE 40 MG INJ IVP SCH ×2 (09:16→21:42)
--- NOTE | 2018-07-14 19:11 | P.PN ---
Subjective Date of Service: 07/14/18 Primary Care Provider: Vincent Villagomez Chief Complaint: Abdominal pain Subjective: Improving Physical Examination - Vital Signs Temperature: 98.1 F Blood Pressure: 131/61 Pulse: 95 Respirations: 18 Pulse Ox (%): 97 - Physical Exam General: Alert, In no apparent distress, Oriented x3, Cooperative HEENT: Atraumatic Neck: Supple Respiratory: Clear to auscultation bilaterally, Normal air movement Cardiovascular: Irregular heart rate/rhythm (Atrial fibrillation rate controlled ) Gastrointestinal: Normal bowel sounds, Soft and benign, Non-distended, No tenderness, No masses, No rebound, No guarding Musculoskeletal: No erythema, No tenderness, No warmth Neurological: Normal speech, Normal strength at 5/5 x4 extr, Normal tone - Studies Laboratory Data (last 24 hrs) 07/14/18 03:44: Sodium 142, Potassium 3.6, BUN 13, Creatinine 0.90, Glucose 172 H, Phosphorus 2.0 L Medications List Reviewed: Yes Assessment & Plan Discharge Plan: Home Physician Review Additional Text: Impression: Esophageal cancer with J-tube placement for malnutrition Atrial fibrillation with RVR now rate controlled on chronic anti coalition therapy Plan: Case discussed at length with surgery. Will see how the patient does with current feeding tube rate. If successful possible discharge tomorrow. Will need to have social service worker arrange for feeds as an outpatient. Will discuss with surgery on when to restart anti coagulation therapy. Will continue with rate control medication. Will discuss with cardiology about possible discharge tomorrow. Time Spent Managing Pts Care (In Minutes): 55
[2018-07-15] MEDS: METRONIDAZOLE 500mg IVPB 500 MG/100 ML BAG IV SCH ×2 (01:17→08:55)
[2018-07-15] MEDS: METOPROLOL TARTRATE 5 MG/5 ML INJ IV SCH ×2 (03:57→08:55)
[2018-07-15] MEDS: HYDROMORPHONE HCL 1 MG/ML INJ IV PRN ×2 (04:00→08:56)
[2018-07-15] MEDS: D5 0.9 NS 1,000 ML IV SCH ×2 (05:18→11:40)
[2018-07-15 07:40] LABS: BUN Blood Urea Nitrogen 12 mg/dL (7-18); Bicarbonate 32 mmol/L (21-32); Glucose Level 159 mg/dL (74-106); Phosphorus 1.8 mg/dL (2.5-4.9); Potassium 3.5 mmol/L (3.5-5.1); Sodium Level 141 mmol/L (136-145)
[2018-07-15] MEDS: PROMOD 30 ML DOSE PO SCH (08:57)
[2018-07-15] MEDS: PANTOPRAZOLE 40 MG INJ IVP SCH (09:00)
--- NOTE | 2018-07-15 09:39 | P.DS ---
Admission Date: 07/12/18 Discharge Date: 07/15/18 Primary Care Provider: Vincent Villagomez Disposition: ROUTINE DISCHARGE Discharge Condition: GOOD Reason for Admission: Abdominal pain Procedures: 1.) Open Jejunostomy Tube placement 07/09/18 2.) Exploratory Laparotomy -07/13/18 - Problems (1) Esophageal cancer Onset Date: 07/13/18 Current Visit: Yes Status: Chronic Qualifiers: Malignant neoplasm of esophagus location: unspecified location Qualified Code(s): C15.9 - Malignant neoplasm of esophagus, unspecified Brief History of Present Illness: Patient is a 73 year old man with esophageal cancer started on cisplatin based chemotherapy and XRT, who presented to clinic for feeding jejunostomy tube Hospital Course: Patient was taken to OR for feeding j-tube on 07-09-18, where an uneventful procedure was completed. Patient started on PO diet after procedure but continued to have nausea with emesis and inability to tolerate PO feeding, with some mild abdominal pain, he felt better after emesis. We held tube feedings until he could tolerate PO as the patient wanted to continue PO feedings after the procedure. I had concern that the patient had ileus as I ran the bowel looking for any metastatic disease, but this was in incomplete exploration during the placement of the J-tube. The patient developed new onset a-fib with RVR and was treated with beta blockade and Dr. Velez saw the patient. The patient also was unable to void and the dillon was replaced. I was concerned that perhaps he had a complication related to surgery perhaps an obstructive process or technical error, therefore I decided to take the patient back to the OR for an exploratory laparotomy. I explored his through the prior upper midline incision and noted no evidence of obstruction or leakage. There were no problems noted during the exploration and the proximal bowel was run from the ligament of treitz, to about 30 cm distal to the j tube insertion site. small bowel effluent was easily passed from proximal to distal. There was no dilated bowel noted. Therefore the patient was closed, and returned to the floor where tube feeding initiated and was advanced slowly, he tolerated well along with sips of water by mouth. Therefore he is appropriate for DC home with follow up with me next week, his medical technologist chief Dr. Bolaños, Cathy Thompson for catheter management, Dr. Villagomez, his oncologist and radiation oncologist all will occur within a week. home tube feedings are arranged as well. Vital Signs/Physical Exam: Temp Pulse Resp BP Pulse Ox 97.9 F 83 20 176/74 H 97 07/15/18 08:00 07/15/18 08:55 07/15/18 08:00 07/15/18 08:55 07/15/18 08:00 General: Alert, In no apparent distress, Cooperative HEENT: Mucous membr. moist/pink Respiratory: Clear to auscultation bilaterally Cardiovascular: Regular rate/rhythm (no a-fib), Normal S1 S2 Gastrointestinal: Normal bowel sounds, Soft and benign (j-tube in place), Non- distended, No ascites, No tenderness, No rebound, No guarding Neurological: Normal speech Laboratory Data at Discharge: WBC 2.6 K/uL (4.3-10.9) L 07/13/18 03:47 Hgb 11.8 g/dL (13.6-17.9) L 07/13/18 03:47 Hct 33.7 % (39.6-49.0) L 07/13/18 03:47 Plt Count 91 K/uL (152-406) L 07/13/18 03:47 Sodium 141 mmol/L (136-145) 07/15/18 07:12 Potassium 3.5 mmol/L (3.5-5.1) 07/15/18 07:12 BUN 12 mg/dL (7-18) 07/15/18 07:12 Creatinine 0.80 mg/dL (0.55-1.3) 07/15/18 07:12 Glucose 159 mg/dL (74-106) H 07/15/18 07:12 Phosphorus 1.8 mg/dL (2.5-4.9) L 07/15/18 07:12 Magnesium 2.1 mg/dL (1.8-2.4) 07/12/18 20:43 Total Bilirubin 0.7 mg/dL (0.2-1.0) 07/12/18 20:43 AST 8 U/L (15-37) L 07/12/18 20:43 ALT 16 U/L (12-78) 07/12/18 20:43 Alkaline Phosphatase 37 U/L (45-117) L 07/12/18 20:43 Troponin I 0.04 ng/mL (0.0-0.045) 07/12/18 20:43 Home Medications: Carboplatin 150 mg IV EVERY 7TH DAY 07/08/18 Dexamethasone [Decadron] 8 mg PO EVERY 7TH DAY 07/08/18 Multivitamin [Multivitamins] 1 each PO DAILY 07/08/18 PACLitaxel [Paclitaxel] 6 mg IV EVERY 7TH DAY 07/08/18 Simvastatin 10 mg PO DAILY 07/08/18 Terazosin HCl 4 mg PO DAILY 07/08/18 Diet: Tube feedings per protocol, may take pills PO with sip of water Activity: No lifting more than 10 lbs Followup: Cathy Gómez CFNP CDE [ALLIED HEALTH PROFESSIONAL] - 1-2 Days Blank Muller MD [ACTIVE - CAN ADMIT] - Juanito Varela MD [ASSOCIATE-ACTIVE - CAN ADMIT] - Antony Javier MD [ACTIVE - CAN ADMIT] - 1 Week Vincent Villagomez MD [Primary Care Provider] -
--- NOTE | 2018-07-15 11:43 | P.PN ---
Subjective Date of Service: 07/15/18 Primary Care Provider: Vincent Villagomez Chief Complaint: Abdominal pain Subjective: Improving Physical Examination - Vital Signs Temperature: 97.9 F Blood Pressure: 176/74 Pulse: 83 Respirations: 20 Pulse Ox (%): 97 - Physical Exam General: Alert, In no apparent distress, Oriented x3, Cooperative HEENT: Atraumatic Neck: Supple Respiratory: Clear to auscultation bilaterally, Normal air movement Cardiovascular: Normal pulses, Regular rate/rhythm Gastrointestinal: Normal bowel sounds, Soft and benign, Non-distended, No tenderness, No masses, No rebound, No guarding Musculoskeletal: No erythema, No tenderness, No warmth Integumentary: No tenderness/swelling, No erythema, No warmth, No cyanosis Neurological: Normal speech, Normal strength at 5/5 x4 extr, Normal tone, Normal affect - Studies Laboratory Data (last 24 hrs) 07/15/18 07:12: Sodium 141, Potassium 3.5, BUN 12, Creatinine 0.80, Glucose 159 H, Phosphorus 1.8 L Medications List Reviewed: Yes Assessment & Plan Discharge Plan: Home Plan to discharge in: 24 Hours Physician Review Additional Text: Impression: Esophageal cancer with J-tube placement for malnutrition Atrial fibrillation with RVR now rate controlled Urinary retention now with Lee catheter. Plan: Case discussed at length with surgery. Patient has tolerated feeds through J- tube. Patient to be discharge today. Patient to start with a rate of 30 up to a goal of 55. This can be done as an outpatient. Home health has arranged for feeding to continue. Concerning his atrial fibrillation with RVR. Rate now controlled. Patient will go home on metoprolol 25 mg 1 pill twice daily. Cardiology is recommending for the patient to be on chronic anti coagulation therapy due to his atrial fibrillation. Family wants me to call his current market gardener to discuss the case further. I anticipate the need for chronic anti coagulation therapy at discharge. This was discussed with surgery. Risks and benefits will be addressed in detail. Patient also with urinary retention. Patient now with Lee catheter. Surgery plans to have the patient be seen by urology in his office this week to further evaluate. Patient can be discharged home. Time Spent Managing Pts Care (In Minutes): 55
[2018-07-15] MEDS ORDERED: POTASSIUM PHOS IN 0.9 % NACL 15 MMOL/250 ML BAG IV ONE (12:00)
[2018-07-15 12:12] VITALS: O2SAT 97
[2018-07-15 12:13] VITALS: BP 160/70; TEMP 97.6
--- NOTE | 2018-07-15 13:46 | PN ---
Date of Progress Note: 07/14/2018 Mr. Lucia is 73, was operated on by Dr. Javier, was noted to have atrial fibrillation that has been treated with IV digoxin and IV Lopressor for rate control. His electrolytes have been corrected . The patient cannot swallow and is not a candidate for anticoagulation or antiarrhythmic. He had e sophageal cancer. Today, his rate is in the 80s. We recommend continuing his present regimen as is. We will be available for questions if the need arise. ADRIÁN/BRISA Voice ID: [id number] Report ID: [id number]
[2018-07-15] MEDS ORDERED: METOPROLOL TAR 25 MG TAB PO SCH (18:00)
== END 2018-07-15 14:20 | disposition home health service (06) | DRG 358 ==
LOC: OR 09:02 → 4TH 12:38 → OR 07-12 03:58 → OBSVTOIN 07-12 04:00 → 4TH 07-12 04:00
PROVIDERS: ADMIT Surgery; ATTEND Surgery
PROC: 0DHA3UZ Insertion of Feeding Device into Jejunum, Percutaneous Approach (ICD-10-PCS; principal; 2018-07-09 10:30)
PROC: 0WJP0ZZ Inspection of Gastrointestinal Tract, Open Approach (ICD-10-PCS; 2018-07-13)
PROC: 3E0H76Z Introduction of Nutritional Substance into Lower GI, Via Natural or Artificial Opening (ICD-10-PCS; 2018-07-13)
DX: C15.5 Malignant neoplasm of lower third of esophagus (principal); I48.91 Unspecified atrial fibrillation; I10 Essential (primary) hypertension; E78.5 Hyperlipidemia, unspecified; R33.9 Retention of urine, unspecified
CPT/HCPCS: 36415; 77336; 77386; 80048; 80053; 81003; 81015; 82533; 82550; 82553; 83735; 84100; 84439; 84443; 84484; 85025; 86850; 86900; 86901; 93005; 93306; 97116; 97165; C9113; G0378; G0379; J0690; J1160; J1170; J2175; J2250; J2370; J2405; J2550; J2704; J2710; J3010; J7030; P9045

== ENCOUNTER 2018-08-03 19:37 | Emergency (ER) | payer OTHER ==
--- OUTSIDE RECORDS SUMMARY | 2018-08-03 19:38 | XMS REPORT | Clinical Summary ---
:1945 Author Organization [facility] Address [address] [place] [address] Care Team Providers Name Role Phone Vincent [...] Encounters Date Type Specialty Care Team Description 07/17/2018 Telephone Cardiothoracic Surgery Helena Monge NP 06/12/2018 Surgery Gastroenterology Main Maguire MD EGD W/ FNA, ESOPHAGEAL EUS 06/12/2018 Anesthesia Event Gastroenterology Chris jaramillo MD 06/12/2018 [facility] Gastroenterology Main Maguire MD Esophageal Encounter adenocarcinoma (HCC) (Primary Dx) 06/11/2018 Telephone Gastroenterology Sonja Rick MA 06/10/2018 Telephone Gastroenterology Sonja Rick MA 06/09/2018 Telephone Cardiothoracic Surgery Beverly Barajas MA 06/09/2018 Telephone Gastroenterology Main Maguire MD 06/09/2018 Telephone Gastroenterology Main Maguire MD 06/04/2018 Hospital Radiology Maikel Edward Encounter MD [place] 06/04/2018 Hospital Radiology Maikel Edward Encounter MD [place] 06/04/2018 Office Visit Cardiothoracic Surgery Maikel Edward MD adenocarcinoma (HCC) (Primary Dx) 06/03/2018 Orders Only Cardiothoracic Surgery Provider, MD [place] after 08/02/2017 Family History Medical History Relation Name Comments [...] Taken Blood Pressure 154/71 06/12/2018 1:48 PM [facility] Pulse 67 06/12/2018 1:48 PM [facility] Temperature 36.3 C (97.3 F) 06/12/2018 1:20 PM [facility]ER Respiratory Rate 22 06/12/2018 1:48 PM [facility]ER Oxygen Saturation 96% 06/12/2018 1:48 PM [facility]ER Inhaled Oxygen Concentration - - Weight 92.9 kg (204 lb 12.8 oz) 06/04/2018 11:30 AM CDT Height 177.8 cm (5' 10") 06/12/2018 11:37 AM [facility]ER Body Mass Index 29.39 06/04/2018 11:30 AM CDT Plan of Treatment Health Maintenance Due Date Last Done Comments COLON CANCER SCREENING 1996 SHINGLES VACCINES (1 of 2) 1996 PNEUMOCOCCAL POLYSACCHARIDE VACCINE AGE 65 AND OVER 2011 PNEUMOCOCCAL-13 2011 INFLUENZA VACCINE 03/04/2018 Procedures Procedure Name Priority Date/Time Associated Comments Diagnosis ESOPHAGOGASTRODUODENOSCOPY (EGD) 06/12/2018 Esophageal 1:00 PM [facility] cancer (HCC) CT CHEST EXTERNAL STUDY Routine 05/29/2018 Results for 3:51 PM CDT this procedure are in the results section. CT CHEST W CONTRAST ABDOMEN W Routine 05/29/2018 CONTRAST PELVIS W CONTRAST CT HEAD EXTERNAL STUDY Routine 05/25/2018 Results for 1:59 PM CDT this procedure are in the results section. after 08/02/[address] Chest External Study (05/29/2018 3:51 PM CDT) Narrative Performed At This exam was not acquired at a [facility] facility and has not been [facility] interpreted by a [facility] Provider.The exam was imported into our imaging system for comparisons purposes. Performing Organization Address City/[facility]/Zipcode Phone Number [facility] [address] [place] [address] CT Chest W Contrast Abdomen W Contrast Pelvis W Contrast (05/29/2018) Narrative Performed At CT Head External Study (05/25/2018 1:59 PM CDT) Narrative Performed At This exam was not acquired at a [facility] facility and has not been [facility] interpreted by a [facility] Provider.The exam was imported into our imaging system for comparisons purposes. Performing Organization Address [facility] Cent[facility]ode Phone Number [facility] [address] [place] [address] after 08/02/2017 Insurance Payer Benefit Plan / Group Subscriber ID Type Phone Address A[employer]NA MEDICARE AETNA MEDICARE HMO/PPO [facility] xxxxxxxx HMO Advance Directives Patient has advance care planning documents on file. For more information, please contact:Minor Lopes[address] [place] [address]
--- NOTE | 2018-08-03 20:32 | ER ---
Nurse's Notes [facility] Name: Damien Lucia Age: 73 yrs Sex: Male : 1945 Arrival Date: 08/03/2018 Time: 19:39 Bed 23 Private MD: COURTNEY WEINSTEIN Diagnosis: Feeding tube leakage Presentation: 08/03 20:02 Presenting complaint: states: that pt had J Tube placed by Dr Javier on Jul 09 and fc it has been leaking a small amt. Today it became a lot of drainage. Pt has also been running fever every evening since last . Transition of care: patient was not received from another setting of care. Onset of symptoms was August 03, 2018. Risk Assessment: Do you want to hurt yourself or someone else? Patient reports no desire to harm self or others. Initial Sepsis Screen: Does the patient meet any 2 criteria? HR > 90 bpm. No. Patient's initial sepsis screen is negative. Does the patient have a suspected source of infection? No. Patient's initial sepsis screen is negative. Care prior to arrival: None. 20:02 Method Of Arrival: Ambulatory fc 20:02 Acuity: JON 3 fc Triage Assessment: 20:13 General: Appears in no apparent distress. comfortable, Behavior is calm, cooperative, aj1 appropriate for age. Pain: Denies pain. Historical: - Allergies: 20:13 No Known Allergies; aj1 - Home Meds: 20:13 Metoprolol Tartrate Oral [Active]; tamsulosin oral oral [Active]; Dexamethasone Oral aj1 [Active]; Protonix Oral [Active]; Zofran Oral [Active]; - PMHx: 20:13 esophageal cancer; arrhythmia; aj1 - PSHx: 20:13 PEG tube insertion- July 09, 2018; aj1 - Immunization history:: Flu vaccine is up to date. - Social history:: Smoking status: Patient/guardian denies using tobacco. - Ebola Screening: : Patient denies travel to an Ebola-affected area in the 21 days before illness onset. - Family history:: not pertinent. - Hospitalizations: : The patient was recently seen at [facility]. Screenin:15 Abuse screen: Denies threats or abuse. Denies injuries from another. Nutritional aj1 screening: No deficits noted. Tuberculosis screening: No symptoms or risk factors identified. 20:54 Fall Risk None identified. aj1 Assessment: 20:15 General: Appears in no apparent distress. comfortable, Behavior is calm, cooperative, aj1 appropriate for age. Pain: Denies pain. Neuro: Level of Consciousness is awake, alert, obeys commands, Oriented to person, place, time, situation. Cardiovascular: Patient's skin is warm and dry. Respiratory: Airway is patent Respiratory effort is even, unlabored, Respiratory pattern is regular, symmetrical. GI: Abdomen is round PEG tube in place, Site with drainage. : No signs and/or symptoms were reported regarding the genitourinary system. EENT: No signs and/or symptoms were reported regarding the EENT system. Derm: No signs and/or symptoms reported regarding the dermatologic system. Skin is pink, warm \T\ dry. normal. Musculoskeletal: No signs and/or symptoms reported regarding the musculoskeletal system. Circulation, motion, and sensation intact. 20:53 Reassessment: Patient appears in no apparent distress at this time. No changes from aj1 previously documented assessment. Patient and/or family updated on plan of care and expected duration. Pain level reassessed. Patient is alert, oriented x 3, equal unlabored respirations, skin warm/dry/pink. Vital Signs: 20:13 BP 138 / 63; Pulse 103; Resp 20; Temp 99.4; Pulse Ox 97% on R/A; Weight 90.26 kg (R); aj1 Height 5 ft. 10 in. (177.80 cm) (R); Pain 0/10; 20:13 Body Mass Index 28.55 (90.26 kg, 177.80 cm) aj1 ED Course: 19:39 Patient arrived in ED. am2 19:40 COURTNEY WEINSTEIN is Private Physician. am2 20:04 Triage completed. fc 20:05 Jim Fitzgerald MD is Attending Physician. rn 20:09 Yuki Mancilla RN is Primary Nurse. aj1 20:13 Arm band placed on Patient placed in an exam room. aj1 20:15 Patient has correct armband on for positive identification. aj1 20:15 No provider procedures requiring assistance completed. aj1 20:31 Antony Javier MD is Referral Physician. rn 20:53 Dressings: 4X4s X 2; PEG tube site. aj1 20:54 Patient did not have IV access during this emergency room visit. aj1 Administered Medications: 20:52 Drug: Bactrim (160 mg-800 mg (DS) 1 tablet Route: PO; aj1 20:54 Follow up: Response: No adverse reaction aj1 Outcome: 20:31 Discharge ordered by . rn 20:54 Discharged to home ambulatory. aj1 20:54 Condition: good 20:54 Discharge instructions given to patient, Instructed on discharge instructions, follow up and referral plans. medication usage, Demonstrated understanding of instructions, follow-up care, medications, Prescriptions given X 1. 20:55 Patient left the ED. aj1 Signatures: Yuki Mancilla RN RN [email or web address] Apurva Masters RN RN fc Nieto, Roman, MD MD rn Moreno, Amanda am2
--- NOTE | 2018-08-03 20:32 | EDPHYS ---
Physician Documentation [facility] Name: Damien Lucia Age: 73 yrs Sex: Male : 1945 Arrival Date: 08/03/2018 Time: 19:39 Bed 23 Private MD: COURTNEY WEINSTEIN ED Physician Jim Fitzgerald HPI: 08/03 20:24 This 73 yrs old Male presents to ER via Ambulatory with complaints of Problem rn With Feeding Tube - Leaking. 20:24 Reports J-tube placed 3-[address] Javier, reports has been having mild rn drainage, sutures removed this past week, and now today noticed increased drainage from stoma, is same color of feeds, and no abd pain. Reports intermittent fevers, but also getting chemo and radiation. . Onset: The symptoms/episode began/occurred today. Severity of symptoms: At their worst the symptoms were mild in the emergency department the symptoms are unchanged. The patient has not experienced similar symptoms in the past. The patient has been recently seen by a physician:. Historical: - Allergies: 20:13 No Known Allergies; aj1 - Home Meds: 20:13 Metoprolol Tartrate Oral [Active]; tamsulosin oral oral [Active]; Dexamethasone Oral aj1 [Active]; Protonix Oral [Active]; Zofran Oral [Active]; - PMHx: 20:13 esophageal cancer; arrhythmia; aj1 - PSHx: 20:13 PEG tube insertion- July 09, 2018; aj1 - Immunization history:: Flu vaccine is up to date. - Social history:: Smoking status: Patient/guardian denies using tobacco. - Ebola Screening: : Patient denies travel to an Ebola-affected area in the 21 days before illness onset. - Family history:: not pertinent. - Hospitalizations: : The patient was recently seen at [facility]. ROS: 20:24 Constitutional: Negative for chills, and weight loss, Abdomen/GI: Negative for rn abdominal pain, nausea, vomiting, diarrhea, and constipation, Skin: Mild irritation around stoma and abdominal wall Exam: 20:24 Constitutional: This is a well developed, well nourished patient who is awake, alert, rn and in no acute distress. Cardiovascular: Regular rate and rhythm with a normal S1 and S2. No gallops, murmurs, or rubs. Normal PMI, no JVD. No pulse deficits. Respiratory: Lungs have equal breath sounds bilaterally, clear to auscultation and percussion. No rales, rhonchi or wheezes noted. No increased work of breathing, no retractions or nasal flaring. Abdomen/GI: soft, non-tender, non-distended, fresh stoma without bleeding, retention disk about an inch or more away from skin surface with small amount of yellow/creamy fluid on dressing, no discharge with pressure around stoma. No purulence. Vital Signs: 20:13 BP 138 / 63; Pulse 103; Resp 20; Temp 99.4; Pulse Ox 97% on R/A; Weight 90.26 kg (R); aj1 Height 5 ft. 10 in. (177.80 cm) (R); Pain 0/10; 20:13 Body Mass Index 28.55 (90.26 kg, 177.80 cm) aj1 MDM: 20:05 Patient medically screened. rn 20:24 Differential Diagnosis feeding tube mal-positioned, cellulitis, post-chemo fever. Data rn reviewed: vital signs, nurses notes, and as a result, I will discharge patient. Counseling: I had a detailed discussion with the patient and/or guardian regarding: the historical points, exam findings, and any diagnostic results supporting the discharge/admit diagnosis, the need for outpatient follow up, to return to the emergency department if symptoms worsen or persist or if there are any questions or concerns that arise at home. Special discussion: I discussed with the patient/guardian in detail that at this point there is no indication for admission to the hospital. It is understood, however, that if the symptoms persist or worsen the patient needs to return immediately for re-evaluation. ED course: Retention disk placed closer to stoma/skin surface, no further leakage currently, but also not getting feed, will dc home with bactrim given fresh stoma, mild leakage, and low grade temp, also with recent chemo, will dc home with close f/u with Pati Javier for further eval. Return precautions given. comfortable with stoma management given she herself has an ostomy. . Administered Medications: 20:52 Drug: Bactrim (160 mg-800 mg (DS) 1 tablet Route: PO; aj1 20:54 Follow up: Response: No adverse reaction aj1 Disposition: 08/03/18 20:31 Discharged to Home. Impression: Feeding tube leakage. - Condition is Stable. - Discharge Instructions: Percutaneous Endoscopic Jejunostomy, Care After. - Prescriptions for Bactrim DS 800- 160 mg Oral Tablet - take 1 tablet by ORAL route every 12 hours for 10 days; 20 tablet. - Medication Reconciliation Form, Thank You Letter, Antibiotic Education, Prescription Opioid Use form. - Follow up: Antony Javier MD; When: 2 - 3 days; Reason: Recheck today's complaints, Re-evaluation by your physician. - Problem is new. - Symptoms have improved. Signatures: Yuki Mancilla RN RN aj1 Jim Fitzgerald MD MD rn radiation: (The following items were deleted from the chart) 20:55 20:31 08/03/2018 20:31 Discharged to Home. Impression: Feeding tube leakage. Condition aj1 is Stable. Forms are Medication Reconciliation Form, Thank You Letter, Antibiotic Education, Prescription Opioid Use. Follow up: Antony Javier; When: 2 - 3 days; Reason: Recheck today's complaints, Re-evaluation by your physician. Problem is new. Symptoms have improved. rn
[2018-08-03] MEDS ORDERED: SMZ./TMP. 800/160 MG TABLET ONE (20:53)
[2018-08-03 21:43] VITALS: BP 138/63; TEMP 99.4; O2SAT 97
== END 2018-08-03 20:55 | disposition home or self-care (01) ==
LOC: ER 19:37
DX: K94.29 Other complications of gastrostomy (principal); Z85.01 Personal history of malignant neoplasm of esophagus
CPT/HCPCS: 99283

== ENCOUNTER 2018-08-04 02:03 | Emergency (ER) | payer OTHER ==
--- OUTSIDE RECORDS SUMMARY | 2018-08-04 02:05 | XMS REPORT | Clinical Summary ---
:1945 Author Organization [facility] Address [address] [place] [address] Care Team Providers Name Role Phone Vincent [...] Anesthesia Event Gastroenterology Chris jaramillo MD 06/12/2018 [facility] Gastroenterology Main Maguire MD Esophageal [...] Only Cardiothoracic Surgery Provider, MD [place] after 08/03/2017 Family History Medical History Relation Name Comments [...] Taken Blood Pressure 154/71 06/12/2018 1:48 PM EDITORIAL CLERK Pulse 67 06/12/2018 1:48 PM EDITORIAL CLERK Temperature 36.3 C (97.3 F) 06/12/2018 1:20 PM EDITORIAL CLERK Respiratory Rate 22 06/12/2018 1:48 PM EDITORIAL CLERK Oxygen Saturation 96% 06/12/2018 1:48 PM EDITORIAL CLERK Inhaled Oxygen Concentration - - Weight 92.9 kg (204 lb 12.8 oz) 06/04/2018 11:30 AM CDT Height 177.8 cm (5' 10") 06/12/2018 11:37 AM EDITORIAL CLERK Body Mass Index 29.39 06/04/2018 11:30 AM CDT Plan of Treatment Health Maintenance Due Date Last Done Comments COLON CANCER SCREENING 1996 SHINGLES VACCINES (1 of 2) 1996 PNEUMOCOCCAL POLYSACCHARIDE VACCINE AGE 65 AND OVER 2011 PNEUMOCOCCAL-13 2011 INFLUENZA VACCINE 03/04/2018 Procedures Procedure Name Priority Date/Time Associated Comments Diagnosis ESOPHAGOGASTRODUODENOSCOPY (EGD) 06/12/2018 Esophageal 1:00 PM EDITORIAL CLERK cancer (HCC) CT CHEST EXTERNAL STUDY Routine 05/29/2018 Results for 3:51 PM CDT this procedure are in the results section. CT CHEST W CONTRAST ABDOMEN W Routine 05/29/2018 CONTRAST PELVIS W CONTRAST CT HEAD EXTERNAL STUDY Routine 05/25/2018 Results for 1:59 PM CDT this procedure are in the results section. after 08/03/[address] Chest External Study (05/29/2018 3:51 PM CDT) Narrative Performed At This exam was not acquired at a [facility] facility and has not been [facility] interpreted by a [facility] Provider.The exam was imported into our imaging system for comparisons purposes. Performing Organization Address City/[facility]/Zipcode Phone Number [facility] [address] [place] [address] CT Chest W Contrast Abdomen W Contrast Pelvis W Contrast (05/29/2018) Narrative Performed At CT Head External Study (05/25/2018 1:59 PM CDT) Narrative Performed At This exam was not acquired at a [facility] facility and has not been [facility] interpreted by a [facility] Provider.The exam was imported into our imaging system for comparisons purposes. Performing Organization Address [facility] Phone Number [facility] [address] [place] [address] after 08/03/2017 Insurance Payer Benefit Plan / Group Subscriber ID Type Phone Address AETNA MEDICARE AETNA MEDICARE HMO/PPO [facility] xxxxxxxx HMO Advance Directives Patient has advance care planning documents on file. For more information, please contact:Minor Lopes[address] [place] [address]
--- NOTE | 2018-08-04 03:27 | ER ---
Nurse's Notes [facility] Name: Damien Lucia Age: 73 yrs Sex: Male : 1945 Arrival Date: 08/04/2018 Time: 02:04 Bed 5 Private MD: COURTNEY WEINSTEIN Diagnosis: displacement of feeding tube Presentation: 08/04 02:13 Presenting complaint: Patient states: that his J tube fell out at 0120. Denies any pain fc or discomfort. Transition of care: patient was not received from another setting of care. Onset of symptoms was August 04, 2018 at 01:20. Risk Assessment: Do you want to hurt yourself or someone else? Patient reports no desire to harm self or others. Initial Sepsis Screen: Does the patient meet any 2 criteria? HR > 90 bpm. Yes Does the patient have a suspected source of infection? No. Patient's initial sepsis screen is negative. Care prior to arrival: None. 02:13 Method Of Arrival: Ambulatory fc 02:13 Acuity: JON 3 fc Historical: - Allergies: 02:20 No Known Allergies; fc - Home Meds: 02:20 Dexamethasone Oral [Active]; Metoprolol Tartrate Oral [Active]; Protonix Oral [Active]; fc tamsulosin Oral [Active]; Zofran Oral [Active]; - PMHx: 02:20 arrhythmia; esophageal cancer; Hypertension; GERD; BPH; Atrial Fib; fc - PSHx: 02:20 J tube; fc - Immunization history:: Last tetanus immunization: unknown, Flu vaccine is up to date. - Social history:: Smoking status: Patient/guardian denies using tobacco, Patient/guardian denies using alcohol, street drugs. - Ebola Screening: : Patient negative for fever greater than or equal to 101.5 degrees Fahrenheit, and additional compatible Ebola Virus Disease symptoms Patient denies exposure to infectious person Patient denies travel to an Ebola-affected area in the 21 days before illness onset. Screenin:17 Abuse screen: Denies threats or abuse. Nutritional screening: No deficits noted. fc Nutritional screening: Use J tube to feed. Tuberculosis screening: No symptoms or risk factors identified. Fall Risk None identified. Assessment: 02:29 General: Appears in no apparent distress. Behavior is calm, cooperative, appropriate ea for age. Pain: Denies pain. Neuro: Level of Consciousness is awake, alert, obeys commands, Oriented to person, place, time, situation. Cardiovascular: Patient's skin is warm and dry. Respiratory: Airway is patent Respiratory effort is even, unlabored, Respiratory pattern is regular, symmetrical. GI: Abdomen is non-distended, stoma noted on abdomen noted, pt reports he had a peg tube in place. : No signs and/or symptoms were reported regarding the genitourinary system. EENT: No signs and/or symptoms were reported regarding the EENT system. Derm: Skin is pink, warm \T\ dry. Musculoskeletal: No signs and/or symptoms reported regarding the musculoskeletal system. 03:50 Reassessment: Patient and/or family updated on plan of care and expected duration. Pain ea level reassessed. Patient is alert, oriented x 3, equal unlabored respirations, skin warm/dry/pink. Discharge instruction given to patient and , both verbalized the understanding of instruction Patient states feeling better. Vital Signs: 02:13 BP 131 / 64; Pulse 94; Resp 18; Temp 98.3(O); Pulse Ox 96% on R/A; Weight 90.26 kg (R); fc Height 5 ft. 10 in. (177.80 cm) (R); Pain 0/10; 03:45 BP 128 / 61; Pulse 88; Resp 18; Pulse Ox 99% ; Pain 0/10; ea 02:13 Body Mass Index 28.55 (90.26 kg, 177.80 cm) ED Course: 02:04 Patient arrived in ED. am2 02:04 COURTNEY WEINSTEIN is Private Physician. am2 02:13 Davon Gray MD is Attending Physician. 02:13 Arm band placed on Patient placed in an exam room, on a stretcher. fc 02:16 Triage completed. fc 02:17 Patient has correct armband on for positive identification. Bed in low position. Call light in reach. Pulse ox on. NIBP on. 02:17 No provider procedures requiring assistance completed. fc 02:25 Diya Reddy, RN is Primary Nurse. ea 03:07 X-ray completed. Portable x-ray completed in exam room. Patient tolerated procedure az well. 03:08 Abdomen 1 View XRAY In Process Unspecified. EDMS 03:22 Patient did not have IV access during this emergency room visit. ea 03:25 Antony Javier MD is Referral Physician. Administered Medications: 03:11 Drug: Gastrografin Liquid 30 ml {Note: admister per radiology.} Route: PO; ea 03:56 Follow up: Response: No adverse reaction ea Outcome: 03:27 Discharge ordered by . 03:50 Discharged to home via wheelchair, with significant other. ea 03:50 Condition: improved 03:50 Discharge instructions given to patient, family, Instructed on discharge instructions, follow up and referral plans. Demonstrated understanding of instructions. 04:03 Patient left the ED. ea Signatures: Dispatcher [employer] EDMS Apurva Masters RN RN fc Moreno, Amanda am2 Antunez, Elena, RN RN ea Starr, Gregory, MD MD Aiyana Hidalgo
--- NOTE | 2018-08-04 03:27 | EDPHYS ---
Physician Documentation [facility] Name: Damien Lucia Age: 73 yrs Sex: Male : 1945 Arrival Date: 08/04/2018 Time: 02:04 Bed 5 Private MD: COURTNEY WEINSTEIN ED Physician Davon Gray HPI: 08/04 03:23 This 73 yrs old Male presents to ER via Ambulatory with complaints of Problem gs With Feeding Tube - out. 03:23 Onset: The symptoms/episode began/occurred suddenly, just prior to arrival. Associated gs signs and symptoms: none. Modifying factors: The symptoms are alleviated by nothing, the symptoms are aggravated by nothing. The patient has not experienced similar symptoms in the past. Historical: - Allergies: 02:20 No Known Allergies; fc - Home Meds: 02:20 Dexamethasone Oral [Active]; Metoprolol Tartrate Oral [Active]; Protonix Oral [Active]; fc tamsulosin Oral [Active]; Zofran Oral [Active]; - PMHx: 02:20 arrhythmia; esophageal cancer; Hypertension; GERD; BPH; Atrial Fib; fc - PSHx: 02:20 J tube; fc - Immunization history:: Last tetanus immunization: unknown, Flu vaccine is up to date. - Social history:: Smoking status: Patient/guardian denies using tobacco, Patient/guardian denies using alcohol, street drugs. - Ebola Screening: : Patient negative for fever greater than or equal to 101.5 degrees Fahrenheit, and additional compatible Ebola Virus Disease symptoms Patient denies exposure to infectious person Patient denies travel to an Ebola-affected area in the 21 days before illness onset. ROS: 03:23 All other systems are negative. gs Exam: 03:23 Constitutional: The patient appears alert, awake. gs 03:23 Abdomen/GI: Inspection: abdomen appears normal, Palpation: abdomen is soft and non-tender, stoma clean and dry. Vital Signs: 02:13 BP 131 / 64; Pulse 94; Resp 18; Temp 98.3(O); Pulse Ox 96% on R/A; Weight 90.26 kg (R); fc Height 5 ft. 10 in. (177.80 cm) (R); Pain 0/10; 03:45 BP 128 / 61; Pulse 88; Resp 18; Pulse Ox 99% ; Pain 0/10; ea 02:13 Body Mass Index 28.55 (90.26 kg, 177.80 cm) Procedures: 03:23 G-tube placement: a 16 Estonian catheter was placed, by the ED physician, Davon joyner MD. MDM: 02:18 Patient medically screened. 03:23 Data reviewed: vital signs, nurses notes. Physician consultation: Antony Javier MD wants gs tube replaced. 08/04 02:56 Order name: Abdomen 1 View XRAY Administered Medications: 03:11 Drug: Gastrografin Liquid 30 ml {Note: admister per radiology.} Route: PO; ea 03:56 Follow up: Response: No adverse reaction ea Disposition: 08/04/18 03:27 Discharged to Home. Impression: displacement of feeding tube. - Condition is Stable. - Medication Reconciliation Form, Thank You Letter, Antibiotic Education, Prescription Opioid Use form. - Follow up: Antony Javier MD; When: 2 - 3 days; Reason: Re-evaluation by your physician. Signatures: Dispatcher [employer] EDNM Auprva Masters RN RN Diya Reddy RN Davon Valdez ea, MD MD Corrections: (The following items were deleted from the chart) 04:03 03:27 08/04/2018 03:27 Discharged to Home. Impression: displacement of feeding tube. ea Condition is Stable. Forms are Medication Reconciliation Form, Thank You Letter, Antibiotic Education, Prescription Opioid Use. Follow up: Antony Javier; When: 2 - 3 days; Reason: Re-evaluation by your physician.
[2018-08-04 04:41] VITALS: TEMP 98.3
[2018-08-04 04:42] VITALS: BP 128/61; O2SAT 99
--- NOTE | 2018-08-04 08:16 | RAD REPORT ---
EXAM DESCRIPTION: RAD - Abdomen Single View - 08/04/2018 3:09 am CLINICAL HISTORY: Enterostomy tube replacement or repositioning COMPARISON: None. FINDINGS: Two KUB films were obtained prior to and subsequent to replacement or repositioning of a J -tube followed by retrograde injection of contrast. No bowel obstruction or free air. Postcontrast examination shows contrast within the lumen of the bow el. IMPRESSION: J-tube positioning appears adequate. Contrast injection retained within the bowel.
== END 2018-08-04 04:03 | disposition home or self-care (01) ==
LOC: ER 02:03
DX: Z43.1 Encounter for attention to gastrostomy (principal); I10 Essential (primary) hypertension; K21.9 Gastro-esophageal reflux disease without esophagitis; I48.91 Unspecified atrial fibrillation; Z85.01 Personal history of malignant neoplasm of esophagus; Z85.89 Personal history of malignant neoplasm of other organs and systems
CPT/HCPCS: 74018; 99283

== ENCOUNTER 2018-08-23 20:12 | Emergency (ER) | payer OTHER ==
--- OUTSIDE RECORDS SUMMARY | 2018-08-23 20:15 | XMS REPORT | Clinical Summary ---
:1945 Author Organization [facility] Address [address] [place] [address] Care Team Providers Name Role Phone Vincent [...] Anesthesia Event Gastroenterology Chris jaramillo MD 06/12/2018 [facility] Gastroenterology Main Maguire MD Esophageal [...] Only Cardiothoracic Surgery Provider, MD Gentry after 08/22/2017 Family History Medical History Relation Name Comments [...] Taken Blood Pressure 154/71 06/12/2018 1:48 PM POT RELINER Pulse 67 06/12/2018 1:48 PM POT RELINER Temperature 36.3 C (97.3 F) 06/12/2018 1:20 PM POT RELINER Respiratory Rate 22 06/12/2018 1:48 PM POT RELINER Oxygen Saturation 96% 06/12/2018 1:48 PM POT RELINER Inhaled Oxygen Concentration - - Weight 92.9 kg (204 lb 12.8 oz) 06/04/2018 11:30 AM CDT Height 177.8 cm (5' 10") 06/12/2018 11:37 AM POT RELINER Body Mass Index 29.39 06/04/2018 11:30 AM CDT Plan of Treatment Date Type Specialty Care Team Description 08/27/2018 Office Visit Cardiothoracic Surgery Maikel Edward MD [address] [address] Health Maintenance Due Date Last Done Comments COLON CANCER SCREENING 1996 SHINGLES VACCINES (1 of 2) 1996 PNEUMOCOCCAL POLYSACCHARIDE VACCINE AGE 65 AND OVER 2011 PNEUMOCOCCAL-13 2011 INFLUENZA VACCINE 03/04/2018 Procedures Procedure Name Priority Date/Time Associated Comments Diagnosis ESOPHAGOGASTRODUODENOSCOPY (EGD) 06/12/2018 Esophageal 1:00 PM POT RELINER cancer (HCC) CT CHEST EXTERNAL STUDY Routine 05/29/2018 Results for 3:51 PM CDT this procedure are in the results section. CT CHEST W CONTRAST ABDOMEN W Routine 05/29/2018 CONTRAST PELVIS W CONTRAST CT HEAD EXTERNAL STUDY Routine 05/25/2018 Results for 1:59 PM CDT this procedure are in the results section. after 08/22/[address] Chest External Study (05/29/2018 3:51 PM CDT) Narrative Performed At This exam was not acquired at a [facility] facility and has not been [facility] interpreted by a [facility] Provider.The exam was imported into our imaging system for comparisons purposes. Performing Organization Address City/[facility] Phone Number [facility] [address] [place] [address] CT Chest W Contrast Abdomen W Contrast Pelvis W Contrast (05/29/2018) Narrative Performed At CT Head External Study (05/25/2018 1:59 PM CDT) Narrative Performed At This exam was not acquired at a [facility] facility and has not been [facility] interpreted by a [facility] Provider.The exam was imported into our imaging system for comparisons purposes. Performing Organization Address [facility] Phone Number [facility] [address] [place] [address] after 08/22/2017 Insurance Payer Benefit Plan / Group Subscriber ID Type Phone Address AETNA MEDICARE AETNA MEDICARE HMO/PPO [facility] xxxxxxxx HMO Advance Directives Patient has advance care planning documents on file. For more information, please contact:Minor Lopes[address] [place] [phone]
--- NOTE | 2018-08-23 22:02 | ER ---
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 aj Transition of care: patient was not received from another setting of care. Onset of symptoms was August 23, 2018. Risk Assessment: Do you want to hurt yourself or someone else? Patient reports no desire to harm self or others. Initial Sepsis Screen: Does the patient meet any 2 criteria? No. Patient's initial sepsis screen is negative. Does the patient have a suspected source of infection? No. Patient's initial sepsis screen is negative. Care prior to arrival: None. 20:20 Method Of Arrival: Ambulatory aj 20:20 Acuity: JON 4 aj Triage Assessment: 20:21 General: Appears in no apparent distress. comfortable, Behavior is calm, cooperative, aj appropriate for age. Pain: Denies pain. Neuro: Level of Consciousness is awake, alert, obeys commands, Oriented to person, place, time, situation, Appropriate for age. Respiratory: Airway is patent Respiratory effort is even, unlabored, Respiratory pattern is regular, symmetrical. GI: Enteral feeding tube. Derm: Skin is intact, is healthy with good turgor, Skin is pink, warm \T\ dry. normal. Historical: - Allergies: 20:21 No Known Allergies; aj - Home Meds: 20:21 Dexamethasone Oral [Active]; Metoprolol Tartrate Oral [Active]; Protonix Oral [Active]; aj tamsulosin Oral [Active]; Zofran Oral [Active]; - PMHx: 20:21 arrhythmia; Atrial Fib; BPH; esophageal cancer; GERD; Hypertension; aj - PSHx: 20:21 J tube; aj - Immunization history:: Adult Immunizations up to date. - Social history:: Smoking status: Patient/guardian denies using tobacco. - Ebola Screening: : Patient negative for fever greater than or equal to 101.5 degrees Fahrenheit, and additional compatible Ebola Virus Disease symptoms Patient denies exposure to infectious person Patient denies travel to an Ebola-affected area in the 21 days before illness onset No symptoms or risks identified at this time. Screenin:34 Abuse screen: Denies threats or abuse. Denies injuries from another. Nutritional mg2 screening: No deficits noted. Tuberculosis screening: No symptoms or risk factors identified. Fall Risk None identified. Assessment: 21:31 General: Appears in no apparent distress. comfortable, Behavior is calm, cooperative. mg2 Pain: Denies pain. Neuro: Level of Consciousness is awake, alert, obeys commands, Oriented to person, place, time, situation. Cardiovascular: Capillary refill < 3 seconds Patient's skin is warm and dry. Respiratory: Airway is patent Respiratory effort is even, unlabored, Respiratory pattern is regular, symmetrical. GI: Abdomen is with PEG tube in PEG tube in place, Site reddened. Site with drainage. : No signs and/or symptoms were reported regarding the genitourinary system. EENT: No signs and/or symptoms were reported regarding the EENT system. Derm: Skin is intact, is healthy with good turgor, redness in the pEG tube area. Musculoskeletal: No signs and/or symptoms reported regarding the musculoskeletal system. Vital Signs: 20:21 BP 110 / 72; Pulse 96; Resp 20; Temp 98.7; Pulse Ox 96% on R/A; Weight 89.36 kg; Height aj 5 ft. 10 in. (177.80 cm) (R); 20:21 Body Mass Index 28.27 (89.36 kg, 177.80 cm) aj ED Course: 20:16 Patient arrived in ED. am2 20:17 Antony Javier MD is Private Physician. am2 20:21 Triage completed. aj 20:21 Arm band placed on left wrist. Patient placed in an exam room. aj 20:25 Roberth Cosme PA is PHCP. cp 20:25 Bert Nieves MD is Attending Physician. cp 21:31 Adrian Pratt RN is Primary Nurse. mg2 21:34 PEG tube insertion -inserted by Carmelina Lepe Kangaroo Fr. 22. Patient did not have IV mg2 access during this emergency room visit. 21:35 Patient has correct armband on for positive identification. mg2 21:59 Antony Javier MD is Referral Physician. cp 22:14 PEG Tube Check w/contrast Sent. mg2 Administered Medications: No medications were administered Outcome: 22:01 Discharge ordered by . cp 22:16 Discharged to home ambulatory, with family. mg2 22:16 Condition: stable 22:16 Discharge instructions given to patient, family, Instructed on discharge instructions, follow up and referral plans. Demonstrated understanding of instructions, follow-up care. 22:16 Patient left the ED. mg2 Signatures: Mel Ennis RN RN aj Roberth Cosme PA PA cp Mel Bryant am2 Adrian Pratt RN RN mg2 Corrections: (The following items were deleted from the chart) 22:16 21:34 PEG tube insertion mg2 mg2
--- NOTE | 2018-08-23 22:02 | EDPHYS ---
Physician Documentation [facility] Name: Damien Lucia Age: 73 yrs Sex: Male : 1945 Arrival Date: 08/23/2018 Time: 20:16 Bed 28 Private MD: Antony Javier ED Physician Bert Nieves HPI: 08/23 20:33 This 73 yrs old Male presents to ER via Ambulatory with complaints of Problem cp With Feeding Tube. 20:33 dislodged J-tube. cp 20:33 Onset: The symptoms/episode began/occurred just prior to arrival. cp Historical: - Allergies: 20:21 No Known Allergies; aj - Home Meds: 20:21 Dexamethasone Oral [Active]; Metoprolol Tartrate Oral [Active]; Protonix Oral [Active]; aj tamsulosin Oral [Active]; Zofran Oral [Active]; - PMHx: 20:21 arrhythmia; Atrial Fib; BPH; esophageal cancer; GERD; Hypertension; aj - PSHx: 20:21 J tube; aj - Immunization history:: Adult Immunizations up to date. - Social history:: Smoking status: Patient/guardian denies using tobacco. - Ebola Screening: : Patient negative for fever greater than or equal to 101.5 degrees Fahrenheit, and additional compatible Ebola Virus Disease symptoms Patient denies exposure to infectious person Patient denies travel to an Ebola-affected area in the 21 days before illness onset No symptoms or risks identified at this time. ROS: 20:40 Constitutional: Negative for body aches, chills, fever, poor PO intake. cp 20:40 Cardiovascular: Negative for chest pain. cp 20:40 Respiratory: Negative for cough, shortness of breath, wheezing. 20:40 Abdomen/GI: Negative for abdominal pain, nausea, vomiting, and diarrhea, constipation, black/tarry stool, rectal bleeding. 20:40 : Negative for urinary symptoms. 20:40 All other systems are negative. Exam: 20:45 Constitutional: The patient appears in no acute distress, alert, awake, non-toxic, well cp developed, well nourished. 20:45 Head/Face: Normocephalic, atraumatic. cp 20:45 Eyes: Periorbital structures: appear normal, Conjunctiva: normal, no exudate, no injection, Sclera: no appreciated abnormality, Lids and lashes: appear normal, bilaterally. 20:45 ENT: External ear(s): are unremarkable, Nose: is normal, Mouth: Lips: moist, Oral mucosa: moist, Posterior pharynx: is normal, airway is patent. 20:45 Chest/axilla: Inspection: normal. 20:45 Cardiovascular: Rate: normal. 20:45 Respiratory: the patient does not display signs of respiratory distress, Respirations: normal, no use of accessory muscles, no retractions, no splinting, no tachypnea. 20:45 Abdomen/GI: Inspection: distension, is not seen, stoma noted LUQ, Bowel sounds: active, cp all quadrants, Palpation: abdomen is soft and non-tender, in all quadrants. 20:45 Skin: area around stoma appears with mild erythema. Vital Signs: 20:21 BP 110 / 72; Pulse 96; Resp 20; Temp 98.7; Pulse Ox 96% on R/A; Weight 89.36 kg; Height aj 5 ft. 10 in. (177.80 cm) (R); 20:21 Body Mass Index 28.27 (89.36 kg, 177.80 cm) aj MDM: 20:25 Patient medically screened. cp 22:00 Data reviewed: vital signs, nurses notes, radiologic studies, plain films. cp 22:00 Test interpretation: by ED physician or midlevel provider: plain radiologic studies. cp Counseling: I had a detailed discussion with the patient and/or guardian regarding: the historical points, exam findings, and any diagnostic results supporting the discharge/admit diagnosis, radiology results, the need for outpatient follow up, a general surgeon, to return to the emergency department if symptoms worsen or persist or if there are any questions or concerns that arise at home. Response to treatment: the patient's symptoms have markedly improved after treatment, and as a result, I will discharge patient. 08/23 21:18 Order name: PEG Tube Check w/contrast cp Administered Medications: No medications were administered Disposition: 22:30 Chart complete. cp Disposition: 08/23/18 22:01 Discharged to Home. Impression: Replacement of feeding tube. - Condition is Stable. - Medication Reconciliation Form, Thank You Letter, Antibiotic Education, Prescription Opioid Use form. - Follow up: Antony Javier MD; When: 2 - 3 days; Reason: Recheck today's complaints. - Problem is an ongoing problem. - Symptoms have improved. Signatures: Dispatcher [employer] EDMel Weller RN RN Roberth Monique PA PA cp Gardose, Michele RN RN mg2 Corrections: (The following items were deleted from the chart) 22:05 22:01 08/23/2018 22:01 Discharged to Home. Impression: Encounter for attention to cp gastrostomy. Condition is Stable. Forms are Medication Reconciliation Form, Thank You Letter, Antibiotic Education, Prescription Opioid Use. Follow up: Antony Javier; When: 2 - 3 days; Reason: Recheck today's complaints. Problem is an ongoing problem. Symptoms have improved. cp 22:16 22:05 08/23/2018 22:01 Discharged to Home. Impression: Replacement of feeding tube. mg2 Condition is Stable. Forms are Medication Reconciliation Form, Thank You Letter, Antibiotic Education, Prescription Opioid Use. Follow up: Antony Javier; When: 2 - 3 days; Reason: Recheck today's complaints. Problem is an ongoing problem. Symptoms have improved. cp
[2018-08-23 22:21] VITALS: BP 110/72; TEMP 98.7; O2SAT 96
--- NOTE | 2018-08-24 08:04 | RAD REPORT ---
EXAM DESCRIPTION: RAD - ENTEROSTOMY TUBE CHECK W/CONTR - 08/23/2018 10:03 pm CLINICAL HISTORY: Enterostomy tube placement. FINDINGS: Two x-rays obtained. Gastrografin was administered into a percutaneous enterostomy tube. T he jejunum is opacified. No extravasation contrast is seen. No fluoroscopy performed. No fluoroscopic spot images obtained
== END 2018-08-23 22:16 | disposition home or self-care (01) ==
LOC: ER 20:12
DX: Z43.1 Encounter for attention to gastrostomy (principal); I10 Essential (primary) hypertension; I48.91 Unspecified atrial fibrillation; K21.9 Gastro-esophageal reflux disease without esophagitis; Z85.01 Personal history of malignant neoplasm of esophagus
CPT/HCPCS: 49465

== ENCOUNTER 2018-08-24 05:36 | Emergency (ER) | payer OTHER ==
--- OUTSIDE RECORDS SUMMARY | 2018-08-24 05:38 | XMS REPORT | Clinical Summary ---
:1945 Author Organization [facility] Address [address] [place] [address] Care Team Providers Name Role Phone Vincent [...] Only Cardiothoracic Surgery Provider, MD Gentry after 08/23/2017 Family History Medical History Relation Name Comments [...] Taken Blood Pressure 154/71 06/12/2018 1:48 PM COIN MACHINE SERVICER REPAIRER Pulse 67 06/12/2018 1:48 PM COIN MACHINE SERVICER REPAIRER Temperature 36.3 C (97.3 F) 06/12/2018 1:20 PM COIN MACHINE SERVICER REPAIRER Respiratory Rate 22 06/12/2018 1:48 PM COIN MACHINE SERVICER REPAIRER Oxygen Saturation 96% 06/12/2018 1:48 PM COIN MACHINE SERVICER REPAIRER Inhaled Oxygen Concentration - - Weight 92.9 kg (204 lb 12.8 oz) 06/04/2018 11:30 AM CDT Height 177.8 cm (5' 10") 06/12/2018 11:37 AM COIN MACHINE SERVICER REPAIRER Body Mass Index 29.39 06/04/2018 11:30 AM CDT Plan of Treatment Date Type Specialty Care Team Description 08/27/2018 Office Visit Cardiothoracic Surgery Maikel Edward MD [address] [address] Health Maintenance Due Date Last Done Comments COLON CANCER SCREENING 1996 SHINGLES VACCINES (1 of 2) 1996 PNEUMOCOCCAL POLYSACCHARIDE VACCINE AGE 65 AND OVER 2011 PNEUMOCOCCAL-13 2011 INFLUENZA VACCINE 03/04/2018 Procedures Procedure Name Priority Date/Time Associated Comments Diagnosis ESOPHAGOGASTRODUODENOSCOPY (EGD) 06/12/2018 Esophageal 1:00 PM COIN MACHINE SERVICER REPAIRER cancer (HCC) CT CHEST EXTERNAL STUDY Routine 05/29/2018 Results for 3:51 PM CDT this procedure are in the results section. CT CHEST W CONTRAST ABDOMEN W Routine 05/29/2018 CONTRAST PELVIS W CONTRAST CT HEAD EXTERNAL STUDY Routine 05/25/2018 Results for 1:59 PM CDT this procedure are in the results section. after 08/23/[address] Chest External Study (05/29/2018 3:51 PM CDT) Narrative Performed At This exam was not acquired at a [facility] facility and has not been [facility] interpreted by a [facility] Provider.The exam was imported into our imaging system for comparisons purposes. Performing Organization Address [facility] Phone Number [facility] [address] [place] [address] CT Chest W Contrast Abdomen W Contrast Pelvis W Contrast (05/29/2018) Narrative Performed At CT Head External Study (05/25/2018 1:59 PM CDT) Narrative Performed At This exam was not acquired at a [facility] facility and has not been [facility] interpreted by a [facility] Provider.The exam was imported into our imaging system for comparisons purposes. Performing Organization Address [facility] Phone Number [facility] [address] [place] [address] after 08/23/2017 Insurance Payer Benefit Plan / Group Subscriber ID Type Phone Address AETNA MEDICARE AETNA MEDICARE HMO/PPO [facility] xxxxxxxx HMO Advance Directives Patient has advance care planning documents on file. For more information, please contact:Minor Lopes[address] [place] [phone]
--- NOTE | 2018-08-24 09:06 | RAD REPORT ---
EXAM DESCRIPTION: RAD - ENTEROSTOMY TUBE CHECK W/CONTR - 08/24/2018 7:30 am CLINICAL HISTORY: Enterostomy tube placement FINDINGS: Gastrografin was administered into a percutaneous enterostomy tube into the left upper shonna drant. The jejunum is opacified contrast. No extravasation contrast is noted. No fluoroscopy was performed. No fluoroscopic spot images obtained
--- NOTE | 2018-08-24 10:54 | ER ---
Nurse's Notes [facility] Name: Damien Lucia Age: 73 yrs Sex: Male : 1945 Arrival Date: 08/24/2018 Time: 05:37 Bed 20 Private MD: Antony Javier Diagnosis: Enterostomy malfunction-resolved Presentation: 08/24 06:04 Presenting complaint: Patient states: "I had my feeding tube replaced yesterday and jd3 ever since then I have had non stop leaking from around the feeding tube.". Transition of care: patient was not received from another setting of care. Onset of symptoms was August 24, 2018. Risk Assessment: Do you want to hurt yourself or someone else? Patient reports no desire to harm self or others. Initial Sepsis Screen: Does the patient meet any 2 criteria? No. Patient's initial sepsis screen is negative. Does the patient have a suspected source of infection? No. Patient's initial sepsis screen is negative. Care prior to arrival: None. 06:04 Method Of Arrival: Ambulatory jd3 06:04 Acuity: JON 4 jd3 Historical: - Allergies: 06:07 No Known Allergies; jd3 - Home Meds: 06:07 Dexamethasone Oral [Active]; Metoprolol Tartrate Oral [Active]; Protonix Oral [Active]; jd3 tamsulosin Oral [Active]; Zofran Oral [Active]; - PMHx: 06:07 arrhythmia; Atrial Fib; BPH; GERD; esophageal cancer; Hypertension; jd3 - PSHx: 06:07 J tube; jd3 - Immunization history:: Adult Immunizations up to date. - Social history:: Smoking status: Patient/guardian denies using tobacco, the patient reports quitting approximately 10 years ago. - Ebola Screening: : Patient negative for fever greater than or equal to 101.5 degrees Fahrenheit, and additional compatible Ebola Virus Disease symptoms. Screenin:09 Abuse screen: Denies threats or abuse. Nutritional screening: No deficits noted. jd3 Tuberculosis screening: No symptoms or risk factors identified. Fall Risk Ambulatory Aid- None/Bed Rest/Nurse Assist (0 pts). Gait- Normal/Bed Rest/Wheelchair (0 pts) Mental Status- Oriented to own ability (0 pts). Total Plummer Fall Scale indicates No Risk (0-24 pts). Assessment: 06:00 General: Appears in no apparent distress. uncomfortable, Behavior is calm, cooperative, jd3 appropriate for age. Pain: Complains of pain in abdomen Pain currently is 2 out of 10 on a pain scale. Quality of pain is described as aching. Neuro: Level of Consciousness is awake, alert, obeys commands, Oriented to person, place, time, situation, Appropriate for age. Cardiovascular: Capillary refill < 3 seconds Patient's skin is warm and dry. Respiratory: Airway is patent Respiratory effort is even, unlabored, Respiratory pattern is regular, symmetrical. GI: Abdomen is round PEG tube in place, Site reddened. Site with drainage. : No signs and/or symptoms were reported regarding the genitourinary system. EENT: No signs and/or symptoms were reported regarding the EENT system. Derm: Skin is intact, Skin is dry, Skin is normal, Skin temperature is warm. Musculoskeletal: Circulation, motion, and sensation intact. Range of motion: intact in all extremities. 06:03 Reassessment: Dr. Nieves at bedside replacing feeding tube. jd3 06:52 Reassessment: Patient appears in no apparent distress at this time. Patient and/or jd3 family updated on plan of care and expected duration. Pain level reassessed. Patient is alert, oriented x 3, equal unlabored respirations, skin warm/dry/pink. provider wants to watch pt for 40-45 min after contrast study and 25-35 ml of fluid given through the feeding tube and observed to see if it has any further leaking. 07:30 Reassessment: PEG site draining yellow fluid, BUFFER CHROME Lesli notified, site cleaned and ABD hb applied. 08:25 Reassessment: Gauze at PEG site wet with yellow fluid, gauze replaced, BUFFER CHROME Lesli hb notified at bedside. 09:00 Reassessment: Patient appears in no apparent distress at this time. Patient and/or hb family updated on plan of care and expected duration. Pain level reassessed. Patient is alert, oriented x 3, equal unlabored respirations, skin warm/dry/pink. 09:35 Reassessment: Gauze at PEG site saturated, 1/4 of ABD pad saturated with yellow fluid. hb Dressing replaced. BUFFER CHROME Lesli notified. remains at bedside. 10:34 Reassessment: Dr. Javier at bedside. hb Vital Signs: 06:07 BP 121 / 58; Pulse 98; Resp 18 S; Temp 97.7(O); Pulse Ox 96% on R/A; Weight 89.36 kg jd3 (R); Height 5 ft. 10 in. (177.80 cm) (R); Pain 2/10; 09:30 BP 126 / 66; Pulse 88; Resp 16; Pulse Ox 100% on R/A; Pain 2/10; hb 06:07 Body Mass Index 28.27 (89.36 kg, 177.80 cm) jd3 ED Course: 05:37 Patient arrived in ED. am2 05:37 Antony Javier MD is Private Physician. am2 05:37 Alex Avitia RN is Primary Nurse. jd3 06:03 Lesli Silva FNP-C is PHCP. snw 06:03 Bert Nieves MD is Attending Physician. snw 06:05 Triage completed. jd3 06:08 Arm band placed on. jd3 06:10 Patient has correct armband on for positive identification. Bed in low position. Call j light in reach. Side rails up X 1. Adult w/ patient. 06:44 feeding tube adjusted, replaced, and dressed. jd3 07:01 Lesli Silva FNP-C is PHCP. snw 07:22 X-ray completed. Portable x-ray completed in exam room. Patient tolerated procedure jb2 well. 10:52 Antony Javier MD is Referral Physician. snw 10:58 Patient did not have IV access during this emergency room visit. hb Administered Medications: No medications were administered Outcome: 10:53 Discharge ordered by . snw 10:58 Discharged to home ambulatory, with significant other. hb 10:58 Condition: stable 10:58 Discharge instructions given to patient, significant other, Instructed on discharge instructions, follow up and referral plans. wound care, Demonstrated understanding of instructions, follow-up care, wound care. 10:58 Patient left the ED. hb Signatures: Lesli Silva FNP-C BEATER MACHINE OPERATOR-[facility] [employer]air jb2 Katarina Butts RN RN hb Mel Bryant am2 Alex Avitia RN RN jd3 Nieves, Bert, MD MD ps1
--- NOTE | 2018-08-24 10:54 | EDPHYS ---
Physician Documentation [facility] Name: Damien Lucia Age: 73 yrs Sex: Male : 1945 Arrival Date: 08/24/2018 Time: 05:37 Bed 20 Private MD: Antony Javier ED Physician Bert Nieves HPI: 08/24 06:31 This 73 yrs old Male presents to ER via Ambulatory with complaints of Problem ps1 With Feeding Tube. 06:31 pt of khang. Seen here last night for same. Placed a 22F Feeding tube. Pt went home ps1 and had a lot of effluent from ostomy site. Returned for eval. No pain. Redness around site which is improving but becoming more tender 2/2 acid bathing ostomy site. . Historical: - Allergies: 06:07 No Known Allergies; jd3 - Home Meds: 06:07 Dexamethasone Oral [Active]; Metoprolol Tartrate Oral [Active]; Protonix Oral [Active]; jd3 tamsulosin Oral [Active]; Zofran Oral [Active]; - PMHx: 06:07 arrhythmia; Atrial Fib; BPH; GERD; esophageal cancer; Hypertension; jd3 - PSHx: 06:07 J tube; jd3 - Immunization history:: Adult Immunizations up to date. - Social history:: Smoking status: Patient/guardian denies using tobacco, the patient reports quitting approximately 10 years ago. - Ebola Screening: : Patient negative for fever greater than or equal to 101.5 degrees Fahrenheit, and additional compatible Ebola Virus Disease symptoms. ROS: 06:31 Constitutional: Negative for fever, chills, and weight loss, Eyes: Negative for injury, ps1 pain, redness, and discharge, Cardiovascular: Negative for chest pain, palpitations, and edema, Respiratory: Negative for shortness of breath, cough, wheezing, and pleuritic chest pain, Back: Negative for injury and pain, MS/Extremity: Negative for injury and deformity, Skin: Negative for injury, rash, and discoloration, Neuro: Negative for headache, weakness, numbness, tingling, and seizure. 06:31 Abdomen/GI: Positive for Feeding tube dysfunction. Exam: 06:31 Constitutional: This is a well developed, well nourished patient who is awake, alert, ps1 and in no acute distress. Head/Face: Normocephalic, atraumatic. Eyes: Pupils equal round and reactive to light, extra-ocular motions intact. Lids and lashes normal. Conjunctiva and sclera are non-icteric and not injected. Chest/axilla: Normal chest wall appearance and motion. Nontender with no deformity. No lesions are appreciated. Cardiovascular: Regular rate and rhythm. No gallops, murmurs, or rubs. Normal PMI, no JVD. No pulse deficits. Respiratory: Lungs have equal breath sounds bilaterally, clear to auscultation and percussion. No rales, rhonchi or wheezes noted. No increased work of breathing, no retractions or nasal flaring. Skin: Warm, dry with normal turgor. Normal color with no rashes, no lesions, and no evidence of cellulitis. MS/ Extremity: Pulses equal, no cyanosis. Neurovascular intact. Full, normal range of motion. Neuro: Awake and alert, GCS 15, oriented to person, place, time, and situation. Cranial nerves II-XII grossly intact. Sensory grossly intact. Psych: Awake, alert, with orientation to person, place and time. Behavior, mood, and affect are within normal limits. 06:31 Abdomen/GI: Inspection: scar(s), are noted in the epigastric area, c/w exlap appears CDI, Has feeding tube in place with leaking around ostomy, surrounding skin is erythematous. . Vital Signs: 06:07 BP 121 / 58; Pulse 98; Resp 18 S; Temp 97.7(O); Pulse Ox 96% on R/A; Weight 89.36 kg jd3 (R); Height 5 ft. 10 in. (177.80 cm) (R); Pain 2/10; 09:30 BP 126 / 66; Pulse 88; Resp 16; Pulse Ox 100% on R/A; Pain 2/10; hb 06:07 Body Mass Index 28.27 (89.36 kg, 177.80 cm) jd3 Procedures: 06:31 G-tube placement: a 24 Sudanese catheter was placed, by the ED physician, Bert carrero MD improved leakage.. MDM: 06:03 Patient medically screened. snw 10:56 Data reviewed: vital signs, nurses notes. Data interpreted: Pulse oximetry: on room air snw is 100 %. Interpretation: normal. Counseling: I had a detailed discussion with the patient and/or guardian regarding: the historical points, exam findings, and any diagnostic results supporting the discharge/admit diagnosis, radiology results, the need for outpatient follow up, to return to the emergency department if symptoms worsen or persist or if there are any questions or concerns that arise at home. Physician consultation: Antony Javier MD in the emergency department to see patient at 10:57. Special discussion: Based on the history and exam findings, there is no indication for further emergent testing or inpatient evaluation. I discussed with the patient/guardian the need to see the general surgeon for further evaluation of the symptoms. I discussed with the patient/guardian the need to see the primary care provider for further evaluation of the symptoms. 08/24 06:22 Order name: Abdomen 1 View XRAY ps1 08/24 09:06 Order name: RAD; Complete Time: 09:25 EDMS Administered Medications: No medications were administered Disposition: 08/24/18 10:53 Discharged to Home. Impression: Enterostomy malfunction - resolved. - Condition is Stable. - Discharge Instructions: Gastrostomy Tube Replacement. - Medication Reconciliation Form, Thank You Letter, Antibiotic Education, Prescription Opioid Use form. - Follow up: Antony Javier MD; When: 2 - 3 days; Reason: Recheck today's complaints, Continuance of care. Follow up: Emergency Department; When: As needed; Reason: Worsening of condition. - Problem is an acute exacerbation. - Symptoms are resolved. Addendum: 09/05/2018 07:03 Co-signature as Attending Physician, Bert Nieves MD Available for consultation at p s1 all times. . Signatures: Dispatcher [employer] EDAZ Lesli Silva, ASSEMBLER MOVEMENT-C ASSEMBLER MOVEMENT-Csnw Katarina Butts RN RN Alex Moreland RN Bert Rangel MD MD ps1 Corrections: (The following items were deleted from the chart) 08/24 10:58 10:53 08/24/2018 10:53 Discharged to Home. Impression: Enterostomy malfunction - hb resolved. Condition is Stable. Forms are Medication Reconciliation Form, Thank You Letter, Antibiotic Education, Prescription Opioid Use. Follow up: Antony Javier; When: 2 - 3 days; Reason: Recheck today's complaints, Continuance of care. Follow up: Emergency Department; When: As needed; Reason: Worsening of condition. Problem is an acute exacerbation. Symptoms are resolved. snw
[2018-08-24 11:12] VITALS: TEMP 97.7
[2018-08-24 11:13] VITALS: BP 126/66; O2SAT 100
== END 2018-08-24 10:58 | disposition home or self-care (01) ==
LOC: ER 05:36
DX: K94.13 Enterostomy malfunction (principal); I10 Essential (primary) hypertension; I48.91 Unspecified atrial fibrillation; K21.9 Gastro-esophageal reflux disease without esophagitis
CPT/HCPCS: 49465

== ENCOUNTER 2018-08-25 06:50 | Emergency (ER) | payer OTHER ==
--- OUTSIDE RECORDS SUMMARY | 2018-08-25 06:52 | XMS REPORT | Clinical Summary ---
:1945 Author Organization [facility] Address [address] [place] [address] Care Team Providers Name Role Phone Vincent [...] Anesthesia Event Gastroenterology Chris jaramillo MD 06/12/2018 [facility] Gastroenterology Main Maguire MD Esophageal Encounter [...] Only Cardiothoracic Surgery Provider, MD [place] after 08/24/2017 Family History Medical History Relation Name Comments [...] Taken Blood Pressure 154/71 06/12/2018 1:48 PM [employer] Pulse 67 06/12/2018 1:48 PM [employer] Temperature 36.3 C (97.3 F) 06/12/2018 1:20 PM [employer] Respiratory Rate 22 06/12/2018 1:48 PM [employer] Oxygen Saturation 96% 06/12/2018 1:48 PM [employer] Inhaled Oxygen Concentration - - Weight 92.9 kg (204 lb 12.8 oz) 06/04/2018 11:30 AM CDT Height 177.8 cm (5' 10") 06/12/2018 11:37 AM [employer] Body Mass Index 29.39 06/04/2018 11:30 AM CDT Plan of Treatment Date Type Specialty Care Team Description 08/27/2018 Office Visit Cardiothoracic Surgery Maikel Edward MD [address] [address] Health Maintenance Due Date Last Done Comments COLON CANCER SCREENING 1996 SHINGLES VACCINES (1 of 2) 1996 PNEUMOCOCCAL POLYSACCHARIDE VACCINE AGE 65 AND OVER 2011 PNEUMOCOCCAL-13 2011 INFLUENZA VACCINE 03/04/2018 Procedures Procedure Name Priority Date/Time Associated Comments Diagnosis ESOPHAGOGASTRODUODENOSCOPY (EGD) 06/12/2018 Esophageal 1:00 PM [employer] cancer (HCC) CT CHEST EXTERNAL STUDY Routine 05/29/2018 Results for 3:51 PM CDT this procedure are in the results section. CT CHEST W CONTRAST ABDOMEN W Routine 05/29/2018 CONTRAST PELVIS W CONTRAST CT HEAD EXTERNAL STUDY Routine 05/25/2018 Results for 1:59 PM CDT this procedure are in the results section. after 08/24/[address] Chest External Study (05/29/2018 3:51 PM CDT) Narrative Performed At This exam was not acquired at a [facility] facility and has not been [facility] interpreted by a [facility] Provider.The exam was imported into our imaging system for comparisons purposes. Performing Organization Address [facility] Phone Number [facility] [address] [place] [address] CT Chest W Contrast Abdomen W Contrast Pelvis W Contrast (05/29/2018) Narrative Performed At CT Head External Study (05/25/2018 1:59 PM CDT) Narrative Performed At This exam was not acquired at a [facility] facility and has not been [facility] interpreted by a [facility] Provider.The exam was imported into our imaging system for comparisons purposes. Performing Organization Address [facility] Phone Number [facility] [address] [place] [address] after 08/24/2017 Insurance Payer Benefit Plan / Group Subscriber ID Type Phone Address AETNA MEDICARE AETNA MEDICARE HMO/PPO [facility] xxxxxxxx HMO Advance Directives Patient has advance care planning documents on file. For more information, please contact:Minor Lopes[address] [place] [phone]
--- NOTE | 2018-08-25 08:56 | RAD REPORT ---
EXAM DESCRIPTION: RAD - ENTEROSTOMY TUBE CHECK W/CONTR - 08/25/2018 8:42 am CLINICAL HISTORY: placement G-tube placement check COMPARISON: ENTEROSTOMY TUBE CHECK W/CONTR dated 08/24/2018 FINDINGS: Two plain radiographs of the abdomen are submitted. No fluoroscopy was performed. Pre contrast injection radiographs shows the enterostomy tube projecting over the left upper quadrant . Contrast is noted in the colon. Post injection radiographs shows contrast filling the small bowel w ithout leakage, indicating appropriate placement.
--- NOTE | 2018-08-25 09:24 | RAD REPORT ---
EXAM DESCRIPTION: RAD - Abdomen 1 View (KUB) - 08/25/2018 9:14 am CLINICAL HISTORY: tube kink reassessment Pain COMPARISON: No comparisons FINDINGS: The bowel gas pattern is non-obstructive. No evidence of free air or pneumatosis. Contrast is seen in the colon and small bowel. Enterostomy tube is noted projecting in the left upper quadrant.
--- NOTE | 2018-08-25 10:24 | ER ---
Nurse's Notes [facility] Name: Damien Lucia Age: 73 yrs Sex: Male : 1945 Arrival Date: 08/25/2018 Time: 06:52 Bed 15 Private MD: COURTNEY WEINSTEIN Diagnosis: Encounter for fitting and adjustment of other gastrointestinal appliance and device Presentation: 08/25 07:05 Presenting complaint: Patient states: PEG tube came out again this morning. Pt denies ss pain. Pt and report that this had happened yesterday as well. Transition of care: patient was not received from another setting of care. Onset of symptoms was August 25, 2018. Risk Assessment: Do you want to hurt yourself or someone else? Patient reports no desire to harm self or others. Initial Sepsis Screen: Does the patient meet any 2 criteria? HR > 90 bpm. Does the patient have a suspected source of infection? No. Patient's initial sepsis screen is negative. Care prior to arrival: None. 07:05 Method Of Arrival: Ambulatory ss 07:05 Acuity: JON 4 ss Historical: - Allergies: 07:06 No Known Allergies; ss - Home Meds: 07:00 Dexamethasone Oral [Active]; Metoprolol Tartrate Oral [Active]; Protonix Oral [Active]; rb1 tamsulosin Oral [Active]; Zofran Oral [Active]; - PMHx: 07:06 Atrial Fib; BPH; esophageal cancer; GERD; Hypertension; ss - PSHx: 07:06 PEG tube placement; ss - Immunization history:: Adult Immunizations up to date. - Social history:: Smoking status: Patient/guardian denies using tobacco, but has a distant history of tobacco abuse. - Ebola Screening: : Patient denies exposure to infectious person Patient denies travel to an Ebola-affected area in the 21 days before illness onset. Screenin:00 Abuse screen: Denies threats or abuse. Nutritional screening: Peg tube came out. rb1 Tuberculosis screening: No symptoms or risk factors identified. Fall Risk None identified. Assessment: 07:00 General: Appears in no apparent distress. comfortable, Behavior is calm, cooperative. rb1 General: stated, "His tube came out again for the third time. I think his skin is too thin from the radiation.". Pain: Denies pain. Neuro: Level of Consciousness is awake, alert, obeys commands, Oriented to person, place, time, situation. Cardiovascular: Capillary refill < 3 seconds is brisk in bilateral fingers. Respiratory: Airway is patent Respiratory effort is even, unlabored, Respiratory pattern is regular, symmetrical. GI: PEG tube placement. : No signs and/or symptoms were reported regarding the genitourinary system. Derm: Skin is pink, warm \\T\\ dry. Musculoskeletal: Range of motion: intact in all extremities. 08:00 Reassessment: Pt. c/o the site leaking where the Peg Tube is. Provider notified. rb1 Ordered to put a pad on the site to see how much is draining. An x-ray is ordered to check placement. 08:50 Reassessment: Provider at bedside speaking with the pt. rb1 09:50 Reassessment: Patient appears in no apparent distress at this time. Patient and/or rb1 family updated on plan of care and expected duration. Pain level reassessed. Patient is alert, oriented x 3, equal unlabored respirations, skin warm/dry/pink. Patient denies pain at this time. 10:50 Reassessment: Patient appears in no apparent distress at this time. No changes from rb1 previously documented assessment. at bedside. Discharge pending due observation for leakage around the Peg Tube site. 11:45 Reassessment: Patient appears in no apparent distress at this time. Patient and/or rb1 family updated on plan of care and expected duration. Pain level reassessed. Patient is alert, oriented x 3, equal unlabored respirations, skin warm/dry/pink. No drainage noted at the site. Notified provider. Discharge pending due to the provider wanting to talk with the pt. and family. Patient denies pain at this time. Vital Signs: 07:06 BP 144 / 69; Pulse 109; Resp 18; Temp 98.3(TE); Pulse Ox 95% on R/A; Weight 88.45 kg; ss Height 5 ft. 10 in. (177.80 cm); Pain 0/10; 08:55 BP 137 / 65; Pulse 87; Resp 17; Pulse Ox 97% on R/A; rb1 09:50 BP 137 / 65; Pulse 78; Resp 17; Pulse Ox 98% on R/A; rb1 10:50 BP 139 / 67; Pulse 86; Resp 16; Pulse Ox 99% on R/A; Pain 0/10; rb1 11:46 BP 129 / 69; Pulse 102; Resp 19; Pulse Ox 100% on R/A; Pain 0/10; rb1 07:06 Body Mass Index 27.98 (88.45 kg, 177.80 cm) ED Course: 06:52 Patient arrived in ED. es 06:53 COURTNEY WEINSTEIN is Private Physician. es 06:58 [facility]C [facility]. snw 06:58 Se Combs MD is Attending Physician. snw 07:00 Patient has correct armband on for positive identification. Bed in low position. Call rb1 light in reach. Side rails up X 1. Pulse ox on. Sitter at bedside. 07:06 Triage completed. ss 07:06 Arm band placed on right wrist. 07:08 Ingris Henriquez, RN is Primary Nurse. rb1 08:41 X-ray completed. Portable x-ray completed in exam room. Patient tolerated procedure jb2 well. 08:43 Enterostomy Tube Check w/contr In Process Unspecified. EDMS 09:16 Abdomen 1 View (KUB) XRAY In Process Unspecified. EDMS 10:21 Antony Javier MD is Referral Physician. snw 11:50 No provider procedures requiring assistance completed. Patient did not have IV access rb1 during this emergency room visit. Administered Medications: No medications were administered Outcome: 10:23 Discharge ordered by . snw 11:50 Discharged to home ambulatory, with significant other. rb1 11:50 Condition: stable 11:50 Discharge instructions given to patient, Instructed on discharge instructions, follow up and referral plans. Demonstrated understanding of instructions, follow-up care, Prescriptions given X none 11:55 Patient left the ED. rb1 Signatures: Dispatcher [employer] EDNE Lesli Silva FNP-C LOGISTICS ANALYST-Csnw Faith Akhtar Jesse jb2 Apurva Zuñiga RN RN Ingris Henriquez, RN RN rb1 Corrections: (The following items were deleted from the chart) 12:43 12:41 Patient left the ED. rb1 rb1 12:43 12:41 Patient left the ED. rb1 rb1
--- NOTE | 2018-08-25 10:24 | EDPHYS ---
Physician Documentation [facility] Name: Damien Lucia Age: 73 yrs Sex: Male : 1945 Arrival Date: 08/25/2018 Time: 06:52 Bed 15 Private MD: COURTNEY WEINSTEIN ED Physician Se Combs HPI: 08/25 08:07 This 73 yrs old Male presents to ER via Ambulatory with complaints of Feeding snw tube came out. 08:07 Onset: The symptoms/episode began/occurred suddenly. Associated signs and symptoms: snw Pertinent positives: skin breakdown. The patient has experienced similar episodes in the past, multiple times. The patient has been recently seen by a physician: Dr. Javier yesterday, with similar presenting complaints, but the patient's symptoms have persisted. Historical: - Allergies: 07:06 No Known Allergies; ss - Home Meds: 07:00 Dexamethasone Oral [Active]; Metoprolol Tartrate Oral [Active]; Protonix Oral [Active]; rb1 tamsulosin Oral [Active]; Zofran Oral [Active]; - PMHx: 07:06 Atrial Fib; BPH; esophageal cancer; GERD; Hypertension; ss - PSHx: 07:06 PEG tube placement; ss - Immunization history:: Adult Immunizations up to date. - Social history:: Smoking status: Patient/guardian denies using tobacco, but has a distant history of tobacco abuse. - Ebola Screening: : Patient denies exposure to infectious person Patient denies travel to an Ebola-affected area in the 21 days before illness onset. ROS: 08:02 Constitutional: Negative for fever, chills, and weight loss, Eyes: Negative for injury, snw pain, redness, and discharge, ENT: Negative for injury, pain, and discharge, Neck: Negative for injury, pain, and swelling, Cardiovascular: Negative for chest pain, palpitations, and edema, Respiratory: Negative for shortness of breath, cough, wheezing, and pleuritic chest pain, Back: Negative for injury and pain, : Negative for injury, bleeding, discharge, and swelling, MS/Extremity: Negative for injury and deformity, Skin: Negative for injury, rash, and discoloration, Neuro: Negative for headache, weakness, numbness, tingling, and seizure. 08:02 Abdomen/GI: Positive for abdominal pain, of the left upper quadrant. Exam: 08:05 Constitutional: This is a well developed, well nourished patient who is awake, alert, snw and in no acute distress. Head/Face: Normocephalic, atraumatic. Eyes: Pupils equal round and reactive to light, extra-ocular motions intact. Lids and lashes normal. Conjunctiva and sclera are non-icteric and not injected. Cornea within normal limits. Periorbital areas with no swelling, redness, or edema. ENT: Nares patent. No nasal discharge, no septal abnormalities noted. Tympanic membranes are normal and external auditory canals are clear. Oropharynx with no redness, swelling, or masses, exudates, or evidence of obstruction, uvula midline. Mucous membranes moist. Neck: Trachea midline, no thyromegaly or masses palpated, and no cervical lymphadenopathy. Supple, full range of motion without nuchal rigidity, or vertebral point tenderness. No Meningismus. Chest/axilla: Normal chest wall appearance and motion. Nontender with no deformity. No lesions are appreciated. Cardiovascular: Regular rate and rhythm with a normal S1 and S2. No gallops, murmurs, or rubs. Normal PMI, no JVD. No pulse deficits. Respiratory: Lungs have equal breath sounds bilaterally, clear to auscultation and percussion. No rales, rhonchi or wheezes noted. No increased work of breathing, no retractions or nasal flaring. Back: No spinal tenderness. No costovertebral tenderness. Full range of motion. Skin: Warm, dry with normal turgor. Normal color with no lesions, skin breakdown surrounding ostomy. MS/ Extremity: Pulses equal, no cyanosis. Neurovascular intact. Full, normal range of motion. Neuro: Awake and alert, GCS 15, oriented to person, place, time, and situation. Cranial nerves II-XII grossly intact. Motor strength 5/5 in all extremities. Sensory grossly intact. Cerebellar exam normal. Normal gait. Vital Signs: 07:06 BP 144 / 69; Pulse 109; Resp 18; Temp 98.3(TE); Pulse Ox 95% on R/A; Weight 88.45 kg; ss Height 5 ft. 10 in. (177.80 cm); Pain 0/10; 08:55 BP 137 / 65; Pulse 87; Resp 17; Pulse Ox 97% on R/A; rb1 09:50 BP 137 / 65; Pulse 78; Resp 17; Pulse Ox 98% on R/A; rb1 10:50 BP 139 / 67; Pulse 86; Resp 16; Pulse Ox 99% on R/A; Pain 0/10; rb1 11:46 BP 129 / 69; Pulse 102; Resp 19; Pulse Ox 100% on R/A; Pain 0/10; rb1 07:06 Body Mass Index 27.98 (88.45 kg, 177.80 cm) ss Procedures: 10:58 G-tube placement: a 24 Citizen Of [place] catheter was placed, with 22F bolster placed and bolster snw base tightened with 2-0 silk. readjusted second to kinked appearance and leakage. reimaged. Tube in place, + leakage. Tube adjusted. Tube/bolster adjusted to pt preference and re-secured. Pt happy. Would like obs x 30 min to see if leakage improved.. MDM: 07:00 Patient medically screened. snw 08:01 Data reviewed: vital signs, nurses notes. Data interpreted: Pulse oximetry: on room air snw is 95 %. Interpretation: acceptable. Counseling: I had a detailed discussion with the patient and/or guardian regarding: the historical points, exam findings, and any diagnostic results supporting the discharge/admit diagnosis, the presence of at least one elevated blood pressure reading (>120/80) during this emergency department visit, the need for outpatient follow up, a dye expert. 09:11 Response to treatment: tube appears kinked at balloon, adjusted deeper into collar and snw re-imaged. 08/25 08:00 Order name: Enterostomy Tube Check w/contr; Complete Time: 08:58 snw 08/25 08:59 Order name: Abdomen 1 View (KUB) XRAY; Complete Time: 09:25 snw Administered Medications: No medications were administered Disposition: 08/25/18 10:23 Discharged to Home. Impression: Encounter for fitting and adjustment of other gastrointestinal appliance and device. - Condition is Stable. - Discharge Instructions: Gastrostomy Tube Home Guide, Adult, Gastrostomy Tube Replacement, Care After. - Medication Reconciliation Form, Thank You Letter, Antibiotic Education, Prescription Opioid Use form. - Follow up: Antony Javier MD; When: 2 - 3 days; Reason: Recheck today's complaints, Continuance of care, Re-evaluation by your physician. Signatures: Dispatcher [employer] EDMS Lesli Silva, STATION GATEMAN-C STATION GATEMAN-Wandyw Apurva Zuñiga, RN RN ss Ingris Henriquez, RN RN rb1 Corrections: (The following items were deleted from the chart) 12:41 10:23 08/25/2018 10:23 Discharged to Home. Impression: Encounter for fitting and rb1 adjustment of other gastrointestinal appliance and device. Condition is Stable. Forms are Medication Reconciliation Form, Thank You Letter, Antibiotic Education, Prescription Opioid Use. Follow up: Antony Javier; When: 2 - 3 days; Reason: Recheck today's complaints, Continuance of care, Re-evaluation by your physician. snw
[2018-08-25 12:49] VITALS: TEMP 98.3
[2018-08-25 12:54] VITALS: BP 129/69; O2SAT 100
== END 2018-08-25 12:41 | disposition home or self-care (01) ==
LOC: ER 06:50
PROC: 0D20XUZ Change Feeding Device in Upper Intestinal Tract, External Approach (ICD-10-PCS; principal; 2018-08-25)
DX: Z46.59 Encounter for fitting and adjustment of other gastrointestinal appliance and device (principal); K94.29 Other complications of gastrostomy; I48.91 Unspecified atrial fibrillation; I10 Essential (primary) hypertension; K21.9 Gastro-esophageal reflux disease without esophagitis; N40.0 Benign prostatic hyperplasia without lower urinary tract symptoms; Z79.899 Other long term (current) drug therapy; Z85.01 Personal history of malignant neoplasm of esophagus
CPT/HCPCS: 49465; 74018; 99284

== ENCOUNTER 2021-11-14 06:25 | Day surgery (SDC) | payer OTHER ==
[2021-11-14] MEDS ORDERED: Ringers Lactate 1,000 ML IV ONE (06:46)
[2021-11-14] MEDS ORDERED: LIDOCAINE 1% MPF 5 ML VIAL ONE ×2 (07:44→08:12)
[2021-11-14] MEDS ORDERED: propofoL 200 MG/20 ML VIAL IV ONE (07:44)
[2021-11-14] MEDS ORDERED: CEFAZOLIN SODIUM 1 GM/VIAL ONE (08:56)
[2021-11-14] MEDS ORDERED: NA CHLORIDE 0.9% 50 ML ONE (08:56)
[2021-11-14 09:20] VITALS: BP 138/68; TEMP 97.3; O2SAT 98
== END 2021-11-14 09:35 | disposition home or self-care (01) ==
LOC: OR 06:25
PROVIDERS: ATTEND Internal Medicine Gastroenterology
PROC: 0DB58ZX Excision of Esophagus, Via Natural or Artificial Opening Endoscopic, Diagnostic (ICD-10-PCS; principal; 2021-11-14 07:30)
DX: F45.8 Other somatoform disorders (principal); Z85.01 Personal history of malignant neoplasm of esophagus; Z20.822 Contact with and (suspected) exposure to COVID-19; K29.50 Unspecified chronic gastritis without bleeding; K22.2 Esophageal obstruction
CPT/HCPCS: 88305; 43239; U0002; J2704; J7120; J0690